=== PATIENT | female | born 1970 | race Caucasian/White ===

== ENCOUNTER 2019-05-25 21:09 | Emergency (ER) | payer OTHER ==
--- OUTSIDE RECORDS SUMMARY | 2019-05-25 21:12 | XMS REPORT ---
:1970 [facility] [address] [place] [address] Care Team Providers Name Role Phone SAMIRA AMARO Unavailable Unavailable SKYLA HERNANDEZ Unavailable Unavailable Problems This patient has no known problems. Allergies, Adverse Reactions, Alerts This patient has no known allergies or adverse reactions. Medications This patient has no known medications. Results Test Description Test Time Test Comments Text Results Atomic Results Result Comments MM, DIGITAL, 2019-05-21 Diagnostic workup per #[id number] - MAMMO, SCREENING, 10:31:00 radiologist?->Yes MM, DIGITAL, MAMMO, WITH ALYX, Reason for SCREENING, WITH ALYX, BILATERAL Exam:->z12.31 BILATERAL INCLUDING INCLUDING CAD CADBILATERAL DIGITAL SCREENING MAMMOGRAM 3D/2D WITH CAD: 05/21/2019Comparison is made to exam dated: 01/31/2017 mammogram. There are scattered fibroglandular elements in both breasts that could obscure a lesion on mammography. Tomosynthesis 3D imaging of the breast was also performed. Current study was also evaluated with a Computer Aided Detection (CAD) system. Benign appearing calcifications are present in both breasts. Examination indicates an intramammary lymph node in the right breast. No significant masses, calcifications, or other findings are seen in either breast. IMPRESSION: BENIGNThere is no mammographic evidence of malignancy. A 1 year screening mammogram is recommended. Stanislav Aly M.D. pth/penrad:05/21/2019 10:31:45 copy to: SIERRA BRICENO MD Normal Exam Mammogram BI-RADS: 2 Benign -GLUCOSE METER 2018-12-30 12:07:00 Test Item Value Reference Range Comments POC-GLUCOSE METER (BEAKER) (test 119 mg/dL 70-110 TESTED AT [facility] [address] [facility] mdat=1877) [facility] [address] POCT-GLUCOSE [id number] 08:38:00 Test Item Value Reference Range Comments POC-GLUCOSE METER (BEAKER) 121 mg/dL 70-110 TESTED AT [address] (test ognp=8068) [facility] [address] [id number] 06:54:00 Test Item Value Reference Range Comments PHOSPHORUS (BEAKER) (test vaqk=086) 2.8 mg/dL 2.3-4.7 [id number] 06:54:00 Test Item Value Reference Range Comments MAGNESIUM (BEAKER) (test ccad=160) 1.9 mg/dL 1.6-2.6 BASIC METABOLIC [id number] 06:54:00 Test Item Value Reference Range Comments SODIUM (BEAKER) (test 138 meq/L 136-145 rcoi=424) POTASSIUM (BEAKER) (test 4.0 meq/L 3.5-5.1 kmew=949) CHLORIDE (BEAKER) (test 111 meq/L 98-107 icos=978) CO2 (BEAKER) (test 20 meq/L 22-29 wqre=323) BLOOD UREA NITROGEN 7 mg/dL 7-21 (BEAKER) (test ezzt=267) CREATININE (BEAKER) (test 0.67 mg/dL 0.57-1.25 xzhz=128) GLUCOSE RANDOM (BEAKER) 121 mg/dL 70-105 (test bcfq=123) CALCIUM (BEAKER) (test 8.2 mg/dL 8.4-10.2 tswz=634) EGFR (BEAKER) (test 95 mL/min/1.73 sq m ESTIMATED GFR IS NOT adsw=7898) ACCURATE CREATININE CLEARANCE IN PREDICTING GLOMERULAR FILTRATION RATE. ESTIMATED GFR IS NOT APPLICABLE FOR DIALYSIS PATIENTS. CBC W/PLT COUNT & AUTO [id number] 06:09:00 Test Item Value Reference Range Comments WHITE BLOOD CELL COUNT (BEAKER) (test fman=139) 7.5 K/ L 3.5-10.5 RED BLOOD CELL COUNT (BEAKER) (test bwoi=528) 4.86 M/ L 3.93-5.22 HEMOGLOBIN (BEAKER) (test aanp=390) 12.1 GM/DL 11.2-15.7 HEMATOCRIT (BEAKER) (test rool=267) 39.9 % 34.1-44.9 MEAN CORPUSCULAR VOLUME (BEAKER) (test bexw=998) 82.1 fL 79.4-94.8 MEAN CORPUSCULAR HEMOGLOBIN (BEAKER) (test 24.9 pg 25.6-32.2 hlig=240) MEAN CORPUSCULAR HEMOGLOBIN CONC (BEAKER) (test 30.3 GM/DL 32.2-35.5 bwra=399) RED CELL DISTRIBUTION WIDTH (BEAKER) (test 18.3 % 11.7-14.4 dxto=184) PLATELET COUNT (BEAKER) (test vaat=343) 212 K/CU MM 150-450 MEAN PLATELET VOLUME (BEAKER) (test mgvr=425) 9.7 fL 9.4-12.3 NUCLEATED RED BLOOD CELLS (BEAKER) (test 0 /100 WBC 0-0 lspf=281) NEUTROPHILS RELATIVE PERCENT (BEAKER) (test 75 % wkaz=196) LYMPHOCYTES RELATIVE PERCENT (BEAKER) (test 16 % nhor=856) MONOCYTES RELATIVE PERCENT (BEAKER) (test 9 % qcjd=979) EOSINOPHILS RELATIVE PERCENT (BEAKER) (test 0 % zhng=878) BASOPHILS RELATIVE PERCENT (BEAKER) (test 0 % lwdr=766) NEUTROPHILS ABSOLUTE COUNT (BEAKER) (test 5.60 K/ L 1.56-6.13 ckgx=108) LYMPHOCYTES ABSOLUTE COUNT (BEAKER) (test 1.20 K/ L 1.18-3.74 noiv=132) MONOCYTES ABSOLUTE COUNT (BEAKER) (test 0.67 K/ L 0.24-0.36 hjjt=016) EOSINOPHILS ABSOLUTE COUNT (BEAKER) (test 0.00 K/ L 0.04-0.36 twsv=483) BASOPHILS ABSOLUTE COUNT (BEAKER) (test 0.01 K/ L 0.01-0.08 effk=823) IMMATURE GRANULOCYTES-RELATIVE PERCENT (BEAKER) 0 % 0-1 (test vgim=9224) POCT-GLUCOSE [id number] 21:17:00 Test Item Value Reference Range Comments POC-GLUCOSE METER (BEAKER) 182 mg/dL 70-110 TESTED AT [address] (test uerp=3275) [facility] [address] POCT-GLUCOSE [id number] 13:42:00 Test Item Value Reference Range Comments POC-GLUCOSE METER (BEAKER) 163 mg/dL 70-110 TESTED AT [address] (test khec=3255) [facility] [address] POCT-GLUCOSE [id number] 07:19:00 Test Item Value Reference Range Comments POC-GLUCOSE METER (BEAKER) 126 mg/dL 70-110 TESTED AT [address] (test qxbc=0046) [facility] [address] TISSUE [id number] 13:15:00Surgical Pathology Report Case: [id number] Authorizing Provider: Skyla Hernandez Collected: 11/27/2018 0819 Ordering Location: [facility] Endoscopy Received: 11/27/2018 1324 Services Pathologist: Daisha Cheatham MD Specimens: A) - Biopsy, Gastric, random B) -Biopsy, Gastroesophageal Junction A. STOMACH, RANDOM, BIOPSY: - CHRONIC INACTIVE GASTRITIS - NEGATIVE FOR H. PYLORI BY WARTHIN-STARRY STAINB. GASTROESOPHAGEAL JUNCTION, BIOPSY: - SQUAMOCOLUMNAR MUCOSA, NEGATIVE FOR DEFINITIVE INTESTINAL METAPLASIA (SEE COMMENT) - SQUAMOUS EPITHELIUM WITH REACTIVE CHANGES, SUGGESTIVE OF REFLUX ESOPHAGITIS - GASTRIC TYPE MUCOSA WITH REACTIVE EPITHELIAL CHANGES AND CHRONIC INFLAMMATION SigningPathologist Direct Phone Line: at1:15 PMB. Sections show squamocolumnar mucosa with marked reactive changes and prominent chronic inflammation in the gastric type mucosa. No definitive intestinal metaplasia is seen histologically. Multiple deeper levels were examined. Additionally, a special stain for PAS/Alcian Blue is also negativefor intestinal metaplasia. Clinical/endoscopic correlation is recommended to determine the adequacy of the sampling. 17923 x 2, 27099, 52064Meduvm obesity, Templeton's esophagus with dysplasiaA. Biopsy, gastric, random; B. Biopsy, gastroesophageal junctionThe case is received in two parts both labeled with the patient's name, Rose Glasgow, date of 1970 and accession number [id number] which corresponds to accompanying requisition page labeled with the same name and accession number. A. Received in formalin labeled "biopsy, gastric" are three burdick-pink irregular pieces of tissue ranging from 0.3 x 0.2 x 0.2 cm to 0.5 x 0.3 x 0.3 cm. The specimen submitted in toto following filtration in cassette A1.B. Received in formalin labeled "biopsy, gastroesophageal junction" are four burdick-pink irregular pieces of tissue ranging from 0.2 x 0.1 x 0.1 cm to 0.4 x 0.3 x 0.2 cm. The specimen submitted in toto following filtration in cassette B1. RP/pl Performed.The interpretation of this case included the use of immunohistochemistry or special stains.warthin-starry, PAS/alcian blueControl Slides Examined: In-house known positive controls were evaluated along with the test tissue. These control slides run alongside of the patients sample show appropriate staining. Internal positive and negative controls when available are evaluated Immunohistochemistry technical testing was performed at [facility]ology [facility] where it was developed and its performance characteristics were determined. It has not been cleared or approved by the U.S. Food and Drug Administration. The FDA has determined that such clearance or approval is not necessary. The test is used for clinical purposes. It should not be regarded as investigational or for research. This laboratory is certified under the Clinical Laboratory Improvement Amendments of 1988 (CLIA-88) as qualified to perform highcomplexity clinical laboratory testing.
[2019-05-25] MEDS ORDERED: LIDOCAINE 4% PATCH ONE (22:10)
[2019-05-25] MEDS ORDERED: NA CHLORIDE 0.9% 500 ML ONE (22:24)
[2019-05-25 22:35] LABS: Absolute Lymphocytes (CBC) 2.1 K/uL (0.7-4.9); Basophils % 0.8 % (0-1.3); Hematocrit 40.5 % (36.0-45.0); MPV 8.6 fL (7.6-11.3); RBC Red Blood Cell Count 4.62 M/uL (3.86-4.86)
[2019-05-25 22:46] LABS: ALT/SGPT 20 U/L (12-78); AST/SGOT 12 U/L (15-37); Albumin 3.3 g/dL (3.4-5.0); Alkaline Phosphatase 97 U/L (45-117); BUN Blood Urea Nitrogen 12 mg/dL (7-18); Bicarbonate 27 mmol/L (21-32); Bilirubin Total 0.3 mg/dL (0.2-1.0); Glucose Level 99 mg/dL (74-106); Potassium 3.6 mmol/L (3.5-5.1); Protein, Total 6.6 g/dL (6.4-8.2); Sodium Level 144 mmol/L (136-145)
--- NOTE | 2019-05-26 00:26 | EDPHYS ---
Physician Documentation [facility] Name: Rose Glasgow Age: 48 yrs Sex: Female : 1970 Arrival Date: 05/25/2019 Time: 21:14 Bed 25 Private MD: ED Physician Hayden Dumas HPI: 05/25 21:59 This 48 yrs old Female presents to ER via Ambulatory with complaints of snw Shoulder Pain. 21:59 The patient or guardian complains of pain, that is acute. left subscapular area. snw Context: The problem was sustained at an unknown site, resulted from an unknown reason, The patient reports no decreased range of motion. The patient reports no obvious deformity. Onset: The symptoms/episode began/occurred gradually, 3 month(s) ago, and became persistent. Associated signs and symptoms: The patient has no apparent associated signs or symptoms. Severity of symptoms: At their worst the symptoms were moderate, severe. It is unknown whether or not the patient has had similar symptoms in the past. The patient has been recently seen by a physician: the patient's primary care provider, Dr. Gray with similar presenting complaints, X-rays were performed. 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 - Social history:: Smoking status: Patient/guardian denies using tobacco, never smoked, Patient uses. - Ebola Screening: : Patient negative for fever greater than or equal to 101.5 degrees Fahrenheit, and additional compatible Ebola Virus Disease symptoms. ROS: 21:57 Eyes: Negative for injury, pain, redness, and discharge, ENT: Negative for injury, snw pain, and discharge, Neck: Negative for injury, pain, and swelling, Cardiovascular: Negative for chest pain, palpitations, and edema, Respiratory: Negative for shortness of breath, cough, wheezing, and pleuritic chest pain, Abdomen/GI: Negative for abdominal pain, nausea, vomiting, diarrhea, and constipation, : Negative for injury, bleeding, discharge, and swelling, MS/Extremity: Negative for injury and deformity, Skin: Negative for injury, rash, and discoloration, Neuro: Negative for headache, weakness, numbness, tingling, and seizure. 21:57 Constitutional: Positive for malaise, anxiety. 21:57 Back: Positive for superficial pain to small area of left upper back. 21:57 Psych: Positive for anxiety. Exam: 21:50 Head/Face: Normocephalic, atraumatic. Eyes: Pupils equal round and reactive to light, snw extra-ocular motions intact. Lids and lashes normal. Conjunctiva and sclera are non-icteric and not injected. Cornea within normal limits. Periorbital areas with no swelling, redness, or edema. ENT: Nares patent. No nasal discharge, no septal abnormalities noted. Tympanic membranes are normal and external auditory canals are clear. Oropharynx with no redness, swelling, or masses, exudates, or evidence of obstruction, uvula midline. Mucous membranes moist. Neck: Trachea midline, no thyromegaly or masses palpated, and no cervical lymphadenopathy. Supple, full range of motion without nuchal rigidity, or vertebral point tenderness. No Meningismus. Chest/axilla: Normal chest wall appearance and motion. Nontender with no deformity. No lesions are appreciated. Cardiovascular: Regular rate and rhythm with a normal S1 and S2. No gallops, murmurs, or rubs. Normal PMI, no JVD. No pulse deficits. Respiratory: Lungs have equal breath sounds bilaterally, clear to auscultation and percussion. No rales, rhonchi or wheezes noted. No increased work of breathing, no retractions or nasal flaring. Abdomen/GI: Soft, non-tender, with normal bowel sounds. No distension or tympany. No guarding or rebound. No evidence of tenderness throughout. Skin: Warm, dry with normal turgor. Normal color with no rashes, no lesions, and no evidence of cellulitis. MS/ Extremity: Pulses equal, no cyanosis. Neurovascular intact. Full, normal range of motion. Neuro: Awake and alert, GCS 15, oriented to person, place, time, and situation. Cranial nerves II-XII grossly intact. Motor strength 5/5 in all extremities. Sensory grossly intact. Cerebellar exam normal. Normal gait. 21:50 Constitutional: The patient appears alert, awake, anxious, uncomfortable. 21:50 Back: pain, that is moderate, of the left subscapular area, ROM is painful, as it presses on sore area distal to left scapula. skin with darker nevus centered within area of pain. 21:50 Psych: Behavior/mood is anxious, Affect is tearful. Oriented to person, place, time. Vital Signs: 21:31 BP 143 / 97; Pulse 62; Resp 18; Temp 98.3; Pulse Ox 96% on R/A; Pain 5/10; sr5 21:40 Weight 120.2 kg (R); Height 5 ft. 6 in. (167.64 cm); sr5 22:18 BP 123 / 81; Pulse 61; Resp 20; Pulse Ox 100% on R/A; sr5 22:57 BP 130 / 88; Pulse 70; Resp 16; Pulse Ox 99% on R/A; Pain 5/10; sr5 23:57 BP 123 / 77; Pulse 71; Resp 16; Pulse Ox 96% on R/A; sr5 05/26 00:25 BP 133 / 86; Pulse 64; Resp 18; Pulse Ox 97% on R/A; sr5 05/25 21:40 Body Mass Index 42.77 (120.20 kg, 167.64 cm) sr5 MDM: 05/25 21:30 Patient medically screened. snw 05/26 00:27 Data reviewed: vital signs, nurses notes. Data interpreted: Pulse oximetry: on room air snw is 96 %. Interpretation: acceptable. Counseling: I had a detailed discussion with the patient and/or guardian regarding: the historical points, exam findings, and any diagnostic results supporting the discharge/admit diagnosis, lab results, radiology results, the need for outpatient follow up, to return to the emergency department if symptoms worsen or persist or if there are any questions or concerns that arise at home. Special discussion: Based on the history and exam findings, there is no indication for further emergent testing or inpatient evaluation. I discussed with the patient/guardian the need to see the consumer safety officer for further evaluation of the symptoms. I discussed with the patient/guardian the need to see the primary care provider for further evaluation of the symptoms. 05/25 22:10 Order name: CMP; Complete Time: 22:47 sr5 05/25 22:10 Order name: CBC with Diff; Complete Time: 22:47 snw 05/25 21:43 Order name: CT Chest W/ Con: left subscapular pain snw 05/25 23:37 Order name: Misc. Order: please increase IVF rate to bolus for remainder of liter; snw Complete Time: 23:40 Administered Medications: 05/25 22:10 Drug: Lidoderm 5 % (700 mg/patch) 1 patches Route: Topical; Site: affected area; sr5 22:44 Follow up: Response: No change in condition sr5 22:27 Drug: NS 0.9% 1000 ml Route: IV; Rate: 75 ml/hr; Site: right antecubital; sr5 05/26 00:46 Follow up: IV Status: Completed infusion; IV Intake: 500ml sr5 Disposition: 01:19 Co-signature as Attending Physician, Hayden Dumas MD I agree with the assessment and kdr plan of care. Disposition: 05/26/19 00:25 Discharged to Home. Impression: Subscapular pain. - Condition is Stable. - Discharge Instructions: Back Pain, Adult, Mole Excision, Care After. - Prescriptions for Lidoderm 5 % Topical adhesive patch,medicated - apply 1 patch by TRANSDERMAL route once daily; 5 Transdermal Patch. - Medication Reconciliation Form, Thank You Letter, Antibiotic Education, Prescription Opioid Use form. - Follow up: Private Physician; When: 2 - 3 days; Reason: Recheck today's complaints, Continuance of care, Re-evaluation by your physician. Follow up: Emergency Department; When: As needed; Reason: Worsening of condition. Signatures: Dispatcher [employer] [facility] Hayden Dumas MD MD kdr Therrien, Shelly, K 8 SCHOOL PRINCIPAL-C K 8 SCHOOL PRINCIPAL-Csnw Resecker, Luis, RN RN sr5 Corrections: (The following items were deleted from the chart) 05/25 21:58 21:50 Back: pain, that is moderate, of the left subscapular area, ROM is painful, as it snw presses on sore area distal to left scapula. snw 22:11 22:11 BASIC METABOLIC PANEL+C.LAB.BRZ ordered. [facility] 05/26 00:46 00:25 05/26/2019 00:25 Discharged to Home. Impression: Subscapular pain. Condition is sr5 Stable. Forms are Medication Reconciliation Form, Thank You Letter, Antibiotic Education, Prescription Opioid Use. Follow up: Private Physician; When: 2 - 3 days; Reason: Recheck today's complaints, Continuance of care, Re-evaluation by your physician. Follow up: Emergency Department; When: As needed; Reason: Worsening of condition. snw
--- NOTE | 2019-05-26 00:26 | ER ---
Nurse's Notes [facility] Name: Rose Glasgow Age: 48 yrs Sex: Female : 1970 Arrival Date: 05/25/2019 Time: 21:14 Bed 25 Private MD: Diagnosis: Subscapular pain Presentation: 05/25 21:25 Presenting complaint: Patient states: pain to LEFT mid back/scapular area x 3 weeks, sr5 reports visible swelling. Back pain reported to have started in December following gastric bypass surgery. Patient has lost 100 pounds and thought pain would have been relieved by now. Reports recent xray showed only degenerative changes. Pt reports pain "feels superficial, it's painful to sit back in my seat or touch it". Pt history of RIGHT partial kidney nephrectomy for cancer. Transition of care: patient was not received from another setting of care. Onset of symptoms was April 25, 2019. Risk Assessment: Do you want to hurt yourself or someone else? Patient reports no desire to harm self or others. Initial Sepsis Screen: Does the patient meet any 2 criteria? No. Patient's initial sepsis screen is negative. Care prior to arrival: None. 21:25 Method Of Arrival: Ambulatory sr5 21:25 Acuity: JINNY 4 sr5 Triage Assessment: 21:31 General: Appears uncomfortable, Behavior is calm, cooperative. Pain: Complains of pain sr5 in left subscapular area and left mid back Pain currently is 5 out of 10 on a pain scale. Quality of pain is described as burning, stinging. EENT: No signs and/or symptoms were reported regarding the EENT system. Neuro: Level of Consciousness is awake, alert, obeys commands, Oriented to person, place, time, situation, Gait is steady, Speech is normal. Cardiovascular: Patient's skin is warm and dry. Respiratory: Respiratory effort is even, unlabored, Respiratory pattern is regular, symmetrical. GI: No signs and/or symptoms were reported involving the gastrointestinal system. : No signs and/or symptoms were reported regarding the genitourinary system. Derm: No signs and/or symptoms reported regarding the dermatologic system. Musculoskeletal: No signs and/or symptoms reported regarding the musculoskeletal system. 21:40 Pain:. 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 - Social history:: Smoking status: Patient/guardian denies using tobacco, never smoked, Patient uses. - Ebola Screening: : Patient negative for fever greater than or equal to 101.5 degrees Fahrenheit, and additional compatible Ebola Virus Disease symptoms. Screenin:11 Abuse screen: Denies threats or abuse. Nutritional screening: No deficits noted. sr5 Tuberculosis screening: No symptoms or risk factors identified. Fall Risk None identified. Assessment: 22:11 Reassessment: No changes from previously documented assessment. General:. sr5 22:57 Reassessment: No changes from previously documented assessment. sr5 05/26 00:25 Reassessment: No changes from previously documented assessment. Patient is alert, sr5 oriented x 3, equal unlabored respirations, skin warm/dry/pink. Vital Signs: 05/25 21:31 BP 143 / 97; Pulse 62; Resp 18; Temp 98.3; Pulse Ox 96% on R/A; Pain 5/10; sr5 21:40 Weight 120.2 kg (R); Height 5 ft. 6 in. (167.64 cm); sr5 22:18 BP 123 / 81; Pulse 61; Resp 20; Pulse Ox 100% on R/A; sr5 22:57 BP 130 / 88; Pulse 70; Resp 16; Pulse Ox 99% on R/A; Pain 5/10; sr5 23:57 BP 123 / 77; Pulse 71; Resp 16; Pulse Ox 96% on R/A; sr5 05/26 00:25 BP 133 / 86; Pulse 64; Resp 18; Pulse Ox 97% on R/A; sr5 05/25 21:40 Body Mass Index 42.77 (120.20 kg, 167.64 cm) sr5 ED Course: 05/25 21:14 Patient arrived in ED. cl3 21:16 Carmella Hi FNP-C [facility] snw 21:16 Hayden Dumas MD is Attending Physician. snw 21:25 Luis Carroll, RN is Primary Nurse. sr5 21:28 Triage completed. sr5 21:31 Arm band placed on right wrist. sr5 22:11 Patient has correct armband on for positive identification. Placed in gown. Bed in low sr5 position. Call light in reach. Side rails up X 1. Pulse ox on. NIBP on. 22:11 No provider procedures requiring assistance completed. Initial lab(s) drawn, by me, srGraham sent to lab. Inserted saline lock: 22 gauge in right antecubital area, using aseptic technique. Blood collected. 23:33 CT Chest W/ Con: left subscapular pain In Process Unspecified. EDMS 05/26 00:44 IV discontinued, intact, bleeding controlled, No redness/swelling at site. Pressure sr5 dressing applied. Administered Medications: 05/25 22:10 Drug: Lidoderm 5 % (700 mg/patch) 1 patches Route: Topical; Site: affected area; sr5 22:44 Follow up: Response: No change in condition sr5 22:27 Drug: NS 0.9% 1000 ml Route: IV; Rate: 75 ml/hr; Site: right antecubital; sr5 05/26 00:46 Follow up: IV Status: Completed infusion; IV Intake: 500ml sr5 Intake: 00:46 IV: 500ml; Total: 500ml. sr5 Outcome: 00:25 Discharge ordered by . snw 00:44 Discharged to home ambulatory. sr5 00:44 Condition: good 00:44 Discharge instructions given to patient, Instructed on discharge instructions, follow up and referral plans. medication usage, Demonstrated understanding of instructions, follow-up care, medications, Prescriptions given X 1. 00:46 Patient left the ED. sr5 Signatures: Dispatcher [employer] EDHI Carmella Hi, CRAYON SORTING MACHINE FEEDER-C CRAYON SORTING MACHINE FEEDER-Csnw Luis Carroll, RN RN Victor Manuel Ayala cl3
[2019-05-26 01:00] VITALS: TEMP 98.3
[2019-05-26 01:06] VITALS: BP 133/86; O2SAT 97
--- NOTE | 2019-05-27 11:05 | RAD REPORT ---
EXAM DESCRIPTION: CT - Thorax W/ Con - 05/26/2019 6:43 am CLINICAL HISTORY: PAIN TECHNIQUE: Contiguous axial images obtained through the chest following the uneventful administratio n of IV contrast. Coronal and sagittal reformatted images provided. This exam was performed according to our departmental dose-optimization program, which includes autom ated exposure control, adjustment of the mA and/or kV according to patient size and/or use of iterati ve reconstruction technique. COMPARISON: 05/09/2017 FINDINGS: Lungs: No focal consolidation. Airways are patent. Pleura: No effusion. No pneumothorax. Heart and pericardium: The heart is normal in size. No pericardial effusion. Mediastinum and giovanna: No pathologically enlarged lymph nodes. Lower neck and chest wall: Unremarkable Vessels: Unremarkable Upper abdomen: The liver is enlarged and diffusely low in density compatible with steatosis. Prior ch olecystectomy. Partially visualized gastric bypass. Bones: Multilevel spondylosis. No acute fracture. IMPRESSION: No acute abnormality. Electronically signed by: Shante Bernard MD 05/25/2019 11:41 PM FINANCIAL SERVICES OFFICER Due to temporary technical issues with the PACS/Fluency reporting system, reports are being signed by the in house radiologist as a courtesy to ensure prompt reporting. The interpreting radiologist is f ully responsible for the content of the report.
== END 2019-05-26 00:46 | disposition home or self-care (01) ==
LOC: ER 21:09
DX: M25.512 Pain in left shoulder (principal); Z88.2 Allergy status to sulfonamides
CPT/HCPCS: 96361; 85025; 36415; 80053; 71260; 96360; 99284; Q9967; J7040

== ENCOUNTER 2020-02-01 20:16 | Observation (INO) | payer OTHER ==
--- OUTSIDE RECORDS SUMMARY | 2020-02-01 20:19 | XMS REPORT | Continuity of Care Document ---
:1970 Author Organization [facility] t Address [address] [place] [address] Care Team Providers Name Role Phone Diane Briceno MD Primary Care Physician Katherine MORENO A Attending Clinician Tramaine Loredo MD Attending Clinician Khushboo SUÁREZ Attending Clinician Unavailable Ernestine STEINBERG Attending Clinician Jed SINHA Attending Clinician Unavailable TY HERNANDEZ Attending Clinician Unavailable Jed SINHA Admitting Clinician Unavailable TY HERNANDEZ Admitting Clinician Unavailable Payers Payer Name Policy Type Policy Number Effective Date Expiration Date S marcella [facility] - [facility]OPEN Center ACCESSxxxxxxxxxx xHMO/POS [place] xxxxxxxxx [facility] - MGD - Medica l CAREUNITED HMO Center POS SELECT CHOICExxxxxxxxxH MO/POS Problems Condition Condition Condition Status Onset Resolution Last Treating Co mments Source Name Details Category Date Date Treatment Clinician Date Morbid Morbid Disease Active [facility] obesity obesity 12-29 [facility] 00:[facility] 00 Center Gastroesop Gastroesop Disease Active [facility] hageal hageal 12-29 kes - reflux reflux 00:00: Medical disease disease 00 Center with with esophagiti esophagiti s s Allergies, Adverse Reactions, Alerts Allergy Allergy Status Severity Reaction(s) Onset Inactive Treating Comm ents Source Name Type Date Date Clinician Adhesive Drug Active Rash 2016-[address] [facility] Allergy 06-21 [facility] - 00:[facility]: Medical 00 Center Sulfa Propensi Active Other (See 2016-[address] (Sulfona ty to Comments) 06-09 [facility] d Medical Antibiot reaction 00 reaction, Lelo ter ics) s advised to avoid due to intracran ial HTN Family History Family Member Diagnosis Comments Start Date Stop Date Source Natural father Heart disease [facility] Natural father Heart failure [facility] Natural father Hyperlipidemia [facility] Natural father Hypertension [facility] Maternal grandmother Cancer [facility] Paternal grandmother Cancer [facility] Social History Social Habit Start Date Stop Date Quantity Comments Source History SDOH Alcohol [facility] Std Drinks [facility] History SDOH Alcohol [facility] Binge [facility] Sex Assigned At [facility] Alcohol Comment 2018-11-24 2018-11-24 rare [facility] - 00:00:00 00:00:00 [facility] History SDOH Alcohol 2018-08-31 2018-08-31 1 [facility] - Frequency 00:00:00 00:00:00 [facility] Smoking Status Start Date Stop Date Source Never smoker [facility] Medications Ordered Filled Start Stop Current Ordering Indication Dosage Frequency Signature Comments Components Source Medication Medication Date Date Medication? Clinician (SIG) Name Name dexlansopra Yes 60mg QD Take [address] [facility] [address] zole 60 mg 8-07 capsule [facility] - capsule 00:00: (60 mg Medical 00 total) by Center mouth daily. levothyroxi Yes 75ug Take [address] [address] ne 7-31 mcg by [facility] - (SYNTHROID, 16:53: mouth Medic al LEVOTHROID) 41 Every Center 50 MCG morning on tablet an empty stomach . acetaZOLAMI Yes 200mg Q.5D Take [address] [place] (DIAMOX) 7-31 mg by [facility] - 500 mg 12 16:53: mouth 2 Medic al hr capsule 41 (two) Center times daily . topiramate Yes 50mg QD Take [address] (TOPAMAX) 7-31 by mouth [facility] - 25 MG 16:53: daily . Medical tablet 41 Center ferrous Yes 325mg Take 325 [facility] sulfate 325 7-31 mg by [facility] - (65 FE) MG 16:53: mouth 3 Medi johan EC tablet 41 (three) Center times daily with meals. cholecalcif 0 Yes 5000U QD Take 5,[address] jeannie, 7-31 Units by [facility] - vitamin D3, 16:53: mouth Medic al 5,000 unit 41 daily. Center Tab topiramate Yes 150mg QD Take [address] (QUDEXY XR) 7-31 mg by [facility] - 150 mg CSpX 16:53: mouth Medic al 41 daily. Center budesonide- 0 Yes 2{puff} Inhale [address] [address] formoterol 7-02 puffs by [facility] - (SYMBICORT) 10:41: mouth via M edical 160-4.5 11 inhaler as Center mcg/actuati needed . on inhaler dilTIAZem Yes 30mg QD Take [address] (CARDIZEM) 7-02 by mouth [facility] - 30 MG 10:41: daily . Medical tablet 11 [place] cetirizine Yes 10mg Take [address] (ZYRTEC) 10 7-02 by mouth Luke s - MG tablet 10:41: as needed Med ical 11 . [place] spironolact Yes 25mg Take [address] [facility] one 7-02 by mouth 2 [facility] - (ALDACTONE) 10:41: (two) Medic al 25 MG 11 times Center tablet daily as needed . topiramate Yes 150mg QD Take [address] (QUDEXY XR) 7-02 mg by [facility] - 150 mg CSpX 10:41: mouth Medic al 11 nightly Center Qudexy . DULoxetine 0 Yes 30mg QD Take [address] (CYMBALTA) 4-08 by mouth [facility] - 30 MG 12:28: daily. Medical capsule 16 Center albuterol 0 Yes 1{puff} Inhale [address] HFA 4-08 puff by [facility] - (VENTOLIN 12:28: mouth via Med ical HFA) 90 16 inhaler Center mcg/actuati every 6 on inhaler (six) hours as needed for Wheezing. Procedures Procedure Date / Time Performed Performing Clinician Sourdiane e MM DIGITAL MAMMO 2019-05-21 10:26:00 Ariana Loredo [facility] - S[facility] WITH [facility] BILATERAL Plan of Care Planned Activity Planned Date Details Comments Source Future Scheduled 2020-01-25 INFLUENZA VACCINE BRITNI Elena [facility] - Test 00:00:00 (#1) [code = [facility] Center INFLUENZA VACCINE (#1)] Future Scheduled 1991 Screening for BRITNI Elena Shay es - Test 00:00:00 malignant neoplasm Medical C enter of cervix (procedure) [code = 139602799] Encounters Start End Encounter Admission Attending Care Care Encounter Source Date/Time Date/Time Type Type Clinicians Facility Department ID 2019-10-27 2019-10-27 Office IRMA Murphy [id number] 13:51:40 15:24:56 Visit Barbara A AMBULATOR [id number] Y [id number] [id number] 2019-01-18 2019-01-18 Office IRMA Cuello [id number] 09:26:08 13:14:40 Visit Verónica AMBULATOR 350.1.13.21 Y [id number] [id number] 2019-01-18 2019-01-18 Office IRMA Sinha [id number] 07:49:07 11:47:45 Visit Sb AMBULATOR 350.1.13.21 Y 0.2.7.2.686 [id number] 2018-12-23 2018-12-23 Office IRMA Sinha [id number] 13:54:21 15:58:00 Visit Sb AMBULATOR 350.1.13.21 Y 0.2.7.2.686 [id number] Results Test Description Test Time Test Comments Results Result [facility] e Comments MM, DIGITAL, 2019-04-26 Diagnostic MRN#: MAMMO, SCREENING, 7 workup per [id number] - WITH ALYX, 10:31:00 radiologist?->Y MM, DIGITAL, MAMMO, BILATERAL es Reason for SCREENING, WITH INCLUDING CAD Exam:->z12.31 ALYX, BILATERAL INCLUDING CADBILATERAL DIGITAL SCREENING MAMMOGRAM 3D/2D WITH CAD: 05/21/2019Compariso n is made to exam dated: 01/31/2017 mammogram. [...] 1 year screening mammogram is recommended. Stanislav Leija M.D. pth/penrad:05/21/20 10:31:45 copy to: SIERRA BRICENO MD Normal Exam Mammogram BI-RADS: 2 Benign digital mammo 2 Interface, External [facility] screen with alyx 7 Ris In - 05/21/2019 - Medical bilateral 10:31:00 [facility] [id number] - MM, DIGITAL, MAMMO, SCREENING, WITH ALYX, BILATERAL INCLUDING CADBILATERAL DIGITAL SCREENING MAMMOGRAM 3D/2D WITH CAD: 05/21/2019Compariso n is made to exam dated: 01/31/2017 mammogram. [...] 1 year screening mammogram is recommended. Stanislav Leija M.D. pth/penrad:05/21/20 10:31:45 copy to: SIERRA BRICENO MD Normal Exam Mammogram BI-RADS: 2 Benign -GLUCOSE METER 2018-12-30 12:07:00 Test Item Value Reference Range Interpretation Comme nts POC-GLUCOSE METER (BEAKER) (test 119 mg/dL 70-110 H TESTED AT [facility] [address] code = 1538) [facility] 7703 0 POCT-GLUCOSE [id number] 08:38:00 Test Item Value Reference Range Interpretation Comments POC-GLUCOSE METER 121 mg/dL 70-110 H TESTED AT [facility] [address] (BEAKER) (test code = BERTNE R [facility] 1538) [address] [id number] 06:54:00 Test Item Value Reference Range Interpretation Comments PHOSPHORUS (BEAKER) (test code = 2.8 mg/dL 2.3-4.7 604) [id number] 06:54:00 Test Item Value Reference Range Interpretation Comments MAGNESIUM (BEAKER) (test code = 1.9 mg/dL 1.6-2.6 627) BASIC METABOLIC [id number] 06:54:00 Test Item Value Reference Range Interpretation Comments SODIUM (BEAKER) 138 meq/L 136-145 (test code = 381) POTASSIUM (BEAKER) 4.0 meq/L 3.5-5.1 (test code = 379) CHLORIDE (BEAKER) 111 meq/L 98-107 H (test code = 382) CO2 (BEAKER) (test 20 meq/L 22-29 L code = 355) BLOOD UREA NITROGEN 7 mg/dL 7-21 (BEAKER) (test code = 354) CREATININE (BEAKER) 0.67 mg/dL 0.57-1.25 (test code = 358) GLUCOSE RANDOM 121 mg/dL 70-105 H (BEAKER) (test code = 652) CALCIUM (BEAKER) 8.2 mg/dL 8.4-10.2 L (test code = 697) EGFR (BEAKER) (test 95 mL/min/1.73 ESTIMA DEJON GFR IS code = 1092) sq m NOT ACCURATE CREATININE CLEARANCE IN PREDICTING GLOMERULAR FILTRATION RATE . ESTIMATED GFR I S NOT APPLICABLE FOR DIALYSIS PATIEN TS. CBC W/PLT COUNT & AUTO [id number] 06:09:00 Test Item Value Reference Range Interpretation Comments WHITE BLOOD CELL COUNT (BEAKER) 7.5 K/ L 3.5-10.5 (test code = 775) RED BLOOD CELL COUNT (BEAKER) 4.86 M/ L 3.93-5.22 (test code = 761) HEMOGLOBIN (BEAKER) (test code = 12.1 GM/DL 11.2-15.7 410) HEMATOCRIT (BEAKER) (test code = 39.9 % 34.1-44.9 411) MEAN CORPUSCULAR VOLUME (BEAKER) 82.1 fL 79.4-94.8 (test code = 753) MEAN CORPUSCULAR HEMOGLOBIN 24.9 pg 25.6-32.2 L (BEAKER) (test code = 751) MEAN CORPUSCULAR HEMOGLOBIN CONC 30.3 GM/DL 32.2-35.5 L (BEAKER) (test code = 752) RED CELL DISTRIBUTION WIDTH 18.3 % 11.7-14.4 H (BEAKER) (test code = 412) PLATELET COUNT (BEAKER) (test 212 K/CU MM 150-450 code = 756) MEAN PLATELET VOLUME (BEAKER) 9.7 fL 9.4-12.3 (test code = 754) NUCLEATED RED BLOOD CELLS 0 /100 WBC 0-0 (BEAKER) (test code = 413) NEUTROPHILS RELATIVE PERCENT 75 % (BEAKER) (test code = 429) LYMPHOCYTES RELATIVE PERCENT 16 % (BEAKER) (test code = 430) MONOCYTES RELATIVE PERCENT 9 % (BEAKER) (test code = 431) EOSINOPHILS RELATIVE PERCENT 0 % (BEAKER) (test code = 432) BASOPHILS RELATIVE PERCENT 0 % (BEAKER) (test code = 437) NEUTROPHILS ABSOLUTE COUNT 5.60 K/ L 1.56-6.13 (BEAKER) (test code = 670) LYMPHOCYTES ABSOLUTE COUNT 1.20 K/ L 1.18-3.74 (BEAKER) (test code = 414) MONOCYTES ABSOLUTE COUNT (BEAKER) 0.67 K/ L 0.24-0.36 H (test code = 415) EOSINOPHILS ABSOLUTE COUNT 0.00 K/ L 0.04-0.36 L (BEAKER) (test code = 416) BASOPHILS ABSOLUTE COUNT (BEAKER) 0.01 K/ L 0.01-0.08 (test code = 417) IMMATURE GRANULOCYTES-RELATIVE 0 % 0-1 PERCENT (BEAKER) (test code = 2801) POCT-GLUCOSE [id number] 21:17:00 Test Item Value Reference Range Interpretation Comments POC-GLUCOSE METER 182 mg/dL 70-110 H TESTED AT [facility] [address] ([facility] (test code = RONY Wilson [facility] 1538) [id number] POCT-GLUCOSE [id number] 13:42:00 Test Item Value Reference Range Interpretation Comments POC-GLUCOSE METER 163 mg/dL 70-110 H TESTED AT [place] [address] ([facility]) (test code = RONY Wilson [facility] 1538) [id number] POCT-GLUCOSE [id number] 07:19:00 Test Item Value Reference Range Interpretation Comments POC-GLUCOSE METER 126 mg/dL 70-110 H TESTED AT [place] [address] ([facility]) (test code = RONY Wilson [facility] 1538) [address] TISSUE [id number] 13:15:00Surgical Pathology Report Case: [id number] Authorizing Provider: Oh Hernandez Collected: 11/27/2018 0819 Ordering Location: [facility] Endoscopy Received: 11/27/2018 1324 Services Pathologist: Daisha Cheatham MD Specimens: A) - Biopsy, Gastric, random B) -Biopsy, Gastroesophageal Junction A. STOMACH, RANDOM, B IOPSY: - CHRONIC INACTIVE GASTRITIS - NEGATIVE FOR H. PYLORI BY WARTHIN- STARRY STAINB. GASTROESOPHAGEAL JUNCTION, BIOPSY: - SQUAMOCOLUMNAR MUCOSA, NEGATIVE FOR DEFINITIVE INTESTINAL METAPLASIA (SEE COMMENT) - SQUAMOUS EPITHELIUM WITH REACTIVE CHANGES, SUGGESTIVE OF REFLUX ESOPHAGITIS - GASTRIC TYPE MUCOSA WITH REACTIVE EPITHELIAL CHANGES AND CHRONIC INFLAMMATION SigningPathologist Direct Phone Line: [phone] signed by Daisha Cheatham MD on 12/02/2018 at1:15 PMB. Sections show squamocolumnar mucosa with marked reactive changes and prominent chronic inflammation in the gastric type mucosa. No definitive intestinal metaplasia is seen histologically. Multiple deeper levels were examined. Additionally, a special stain for PAS/Alcian Blue is also negativefor intestinal metaplasia. Clinical/endoscopic correlation is recommended to determine the adequacy of the sampling. 12562 x 2, 22542, 40368Dmrsmy obesity, Templeton's esophagus with dysplasiaA. Biopsy, gastric, [...] included the use of immunohistochemistry or special stains.warthin- starry, PAS/alcian blueControl Slides Examined: In-house known positive controls were evaluated along with the test tissue. These control slides run alongside of the patients sample show appropriate staining. Internal positive and negative controls when available are evaluated Immunohistochemistry technical testing was performed at [facility], Pathology Laboratory where it was developed and [...] of 1988 (CLIA-88) as qualified to perform high complexity clinical laboratory testing.
--- OUTSIDE RECORDS SUMMARY | 2020-02-01 20:19 | XMS REPORT | Clinical Summary ---
:1970 Author Organization [facility] Address [address] [place] [address] Care Team Providers Name Role Phone Zuleyka Briceno MD Primary Care Provider Allergies Active Allergy Reactions Severity Noted Date Comments Adhesive Rash Low 04/21/2017 Sulfa (Sulfonamide Other (See Comments) High 04/09/2017 N o documented reaction, Antibiotics) advised to avoi d due to intracranial HT N Medications Medication Sig Dispensed Refills Start Date End Date Status budesonide-formoterol Inhale 2 puffs 0 Active (SYMBICORT) 160-4.5 by mouth via mcg/actuation inhaler inhaler as needed . DULoxetine (CYMBALTA) 30 Take 30 mg by 0 Active MG capsule mouth daily. levothyroxine Take 75 mcg by 0 A ctive (SYNTHROID, LEVOTHROID) mouth Every 50 MCG tablet morning on an empty stomach . acetaZOLAMIDE (DIAMOX) Take 200 mg by 0 Active 500 mg 12 hr capsule mouth 2 (two) times daily . albuterol HFA (VENTOLIN Inhale 1 puff 0 Active HFA) 90 mcg/actuation by mouth via inhaler inhaler every 6 (six) hours as needed for Wheezing. dilTIAZem (CARDIZEM) 30 Take 30 mg by 0 Active MG tablet mouth daily . cetirizine (ZYRTEC) 10 Take 10 mg by 0 Active MG tablet mouth as needed . spironolactone Take 25 mg by 0 A ctive (ALDACTONE) 25 MG tablet mouth 2 (two) times daily as needed . topiramate (QUDEXY XR) Take 150 mg by 0 Active 150 mg CSpX mouth nightly Qudexy . topiramate (TOPAMAX) 25 Take 50 mg by 0 Active MG tablet mouth daily . ferrous sulfate 325 (65 Take 325 mg by 0 Active FE) MG EC tablet mouth 3 (three) times daily with meals. cholecalciferol, vitamin Take 5,000 0 Active D3, 5,000 unit Tab Units by mouth daily. topiramate (QUDEXY XR) Take 150 mg by 0 Active 150 mg CSpX mouth daily. dexlansoprazole 60 mg Take 1 capsule 30 capsule 0 12/30/2018 Active capsule (60 mg total) by mouth daily. Active Problems Problem Noted Date Morbid obesity 12/29/2018 Gastroesophageal reflux disease with esophagitis 12/29 Encounters Date Type Specialty Care Team Description 05/21/2019 Hospital Encounter Gertrude, Visit for screening Ariana Redd mammogram 03/27/2019 Outside Orders Central Scheduling Gertrude Visit f or screening Ariana Redd mammogram ( Primary MD Dx) after 01/31/2019 Family History Medical History Relation Name Comments Heart disease Father Heart failure Father Hyperlipidemia Father Hypertension Father Cancer Maternal Grandmother Cancer Paternal Grandmother Relation Name Status Comments Father Maternal Grandmother Paternal Grandmother Social History Tobacco Use Types Packs/Day Years Used Date Never Smoker Smokeless Tobacco: Never Used Alcohol Use Drinks/Week oz/Week Comments No rare Alcohol Habits Answer Date Recorded How often do you have a drink containing alcohol? Never 08/31/2018 How many drinks containing alcohol do you have on a typical Not asked day when you are drinking? How often do you have six or more drinks on one occasion? No t asked Sex Assigned at Date Recorded Not on file Job Start Date Occupation Industry Not on file Not on file Not on file Travel History Travel Start Travel End No recent travel history available. Last Filed Vital Signs Not on file Plan of Treatment Health Maintenance Due Date Last Done Comments CERVICAL CANCER SCREENING PAP ONLY (Age 21-65) 1991 INFLUENZA VACCINE (#1) 2020 Implants Implanted Type Area Minister Device Shelf Model / Identifier Expiration Serial / Date Lot Seamguard Biomateral Staple Line Reinforcement Green/Blue N/A: GORE 01/23/2021 [id number] / Implanted: Qty: 2 on 12/29/2018 by Sb Sinha MD [facility] / [id number] Procedures Procedure Name Priority Date/Time Associated Diagnosis Comme nts MM DIGITAL MAMMO Routine 05/21/2019 10:26 AM Resu lts for this SCREEN WITH ALYX VERIFYING MACHINE OPERATOR procedure a re in BILATERAL the results section. after 01/31/2019 Results MM digital mammo screen with alyx bilateral (05/21/2019 10:26 AM VERIFYING MACHINE OPERATOR) Specimen Narrative Performed At [facility] #[id number] - MM, DIGITAL, MAMMO, SCREENIN G, WITH ALYX, BILATERAL INCLUDING CAD BILATERAL DIGITAL SCREENING MAMMOGRAM 3D /2D WITH CAD: 05/21/2019 Comparison is made to exam dated:01/31 mammogram. There are scattered fibroglandular eleme nts in both breasts that could obscure a lesion on mammography. Tomosynthesis 3D imaging of the breast w as also performed. Current study was also evaluated with a Computer Aided Detection (CAD) system. Benign appearing calcifications are pres ent in both breasts. Examination indicates an intramammary lymph node in th e right breast. No significant masses, calcifications, o r other findings are seen in either breast. IMPRESSION: BENIGN There is no mammographic evidence of mal ignancy. A 1 year screening mammogram is recommended. Stanislav Aly M.D. pth/penrad:05/21/2019 10:31:45 copy to: SIERRA BRICENO MD Normal Exam Mammogram BI-RADS: 2 Benign Procedure Note Interface, External Ris In - 05/21/2019 11:15 AM [facility] [place] #[id number] - MM, DIGITAL, MAMMO, SCREENIN G, WITH ALYX, BILATERAL INCLUDING CAD BILATERAL DIGITAL SCREENING MAMMOGRAM 3D /2D WITH CAD: 05/21/2019 Comparison is made to exam dated: 017 mammogram. There are scattered fibroglandular eleme nts in both breasts that could obscure a lesion on mammography. Tomosynthesis 3D imaging of the breast w as also performed. Current study was also evaluated with a Computer Aided Detection (CAD) system. Benign appearing calcifications are pres ent in both breasts. Examination indicates an intramammary ly mph node in the right breast. No significant masses, calcifications, o r other findings are seen in either breast. IMPRESSION: BENIGN There is no mammographic evidence of mal ignancy. A 1 year screening mammogram is recommended. Stanislav Aly M.D. pth/penrad:05/21/2019 10:31:45 copy to: SIERRA BRICENO MD Normal Exam Mammogram BI-RADS: 2 Benign Performing Organization Address City/State/Zipcode Phone Number GE RIS after 01/31/2019 Insurance Payer Benefit Plan / Group Subscriber ID Type Phone A ddress [employer] - MGD CARE CIGNA HMO/POS/OPEN xxxxxxxxxxx HMO/POS ACCESS [employer] - MGD UNITED HMO POS SELECT xxxxxxxxx HMO/POS CARE CHOICE Advance Directives For more information, please contact:[address] [phone] Code Status Date Activated Date Inactivated Comments Full Code 12/29/2018 6:29 AM 12/29/2018 6:22 PM This code status was determined by: Patient
--- NOTE | 2020-02-01 21:26 | RAD REPORT ---
EXAM DESCRIPTION: RAD - Chest Single View - 02/01/2020 9:10 pm CLINICAL HISTORY: CHEST PAIN COMPARISON: Two view chest April 2017 TECHNIQUE: AP portable chest image was obtained 02/01/2020 9:10 pm . FINDINGS: Lungs are clear. Heart and vasculature are normal. No measurable pleural effusion and no p neumothorax. No acute bony abnormality seen. No acute aortic findings suspected. IMPRESSION: No acute cardiopulmonary process. No significant change from comparison.
[2020-02-01 21:30] LABS: ALT/SGPT 144 U/L (12-78); Albumin 3.5 g/dL (3.4-5.0); Alkaline Phosphatase 155 U/L (45-117); BUN Blood Urea Nitrogen 22 mg/dL (7-18); Bicarbonate 24 mmol/L (21-32); Bilirubin Direct 0.1 mg/dL (0-0.2); Bilirubin Total 0.3 mg/dL (0.2-1.0); Glucose Level 72 mg/dL (74-106); NT PRO-BNP 65 pg/mL (<125); Potassium 3.5 mmol/L (3.5-5.1); Protein, Total 7.3 g/dL (6.4-8.2); Sodium Level 139 mmol/L (136-145); Troponin (Emerg Dept Use Only) < 0.02 ng/mL (0.0-0.045)
[2020-02-01 21:32] LABS: AST/SGOT 446 U/L (15-37)
[2020-02-01 21:34] LABS: Absolute Lymphocytes (CBC) 2.4 K/uL (0.7-4.9); Basophils % 0.8 % (0-1.3); Hematocrit 43.4 % (36.0-45.0); Lymphocytes % 39.8 % (15.3-44.8); MPV 8.4 fL (7.6-11.3); RBC Red Blood Cell Count 5.08 M/uL (3.86-4.86)
[2020-02-01] MEDS ORDERED: ASPIRIN 81 MG CHEWABLE TABLET ONE (21:47)
[2020-02-01] MEDS ORDERED: MORPHINE 2 MG/ML SYR ONE ×2 (21:48→22:30)
[2020-02-01] MEDS ORDERED: ONDANSETRON 4 MG/2 ML VIAL ONE (21:48)
[2020-02-01 21:57] LABS: Blood Morphology Comment NOT SEEN (NOT SEEN); Platelet Estimate ADEQ; White Blood Cell Scan OK (OK)
[2020-02-01 22:02] LABS: Urine Blood NEGATIVE (NEG); Urine Glucose NEGATIVE (NEG); Urine Protein NEGATIVE (NEG)
[2020-02-01] MEDS ORDERED: NA CHLORIDE 0.9% 50 ML IV ONE (22:57)
[2020-02-01] MEDS ORDERED: PROMETHAZINE INJ 25 MG/ML AMP ONE (22:57)
--- NOTE | 2020-02-01 23:58 | ER ---
Nurse's Notes [facility] Name: Rose Glasgow Age: 49 yrs Sex: Female : 1970 Arrival Date: 02/01/2020 Time: 20:18 Bed 13 Private MD: Diagnosis: Chest pain, unspecified Presentation: 01/31 20:33 Chief complaint: Patient states: chest pain and tightness that started 30 minutes ago. wh Pt states pain radiating to left shoulder and neck. Pt states last night was awaken by sharp chest pain that subsided. Coronavirus screen: Client denies travel out of the [place] in the last 14 days. At this time, the client does not indicate any symptoms associated with coronavirus-19. Ebola Screen: Patient negative for fever greater than or equal to 101.5 degrees Fahrenheit, and additional compatible Ebola Virus Disease symptoms Patient denies exposure to infectious person. Initial Sepsis Screen: Does the patient meet any 2 criteria? No. Patient's initial sepsis screen is negative. Does the patient have a suspected source of infection? No. Patient's initial sepsis screen is negative. Risk Assessment: Do you want to hurt yourself or someone else? Patient reports no desire to harm self or others. Onset of symptoms was February 01, 2020. 20:33 Method Of Arrival: Wheelchair 20:33 Acuity: JINNY 3 20:35 Activity prior to arrival: vomiting. ls4 Triage Assessment: 20:22 General: Appears in no apparent distress. uncomfortable, Behavior is calm, cooperative. ls4 Pain: Complains of pain in anterior aspect of left upper chest and mid-sternal area Pain radiates to left sternocleidomastoid Pain currently is 7 out of 10 on a pain scale. 20:22 Cardiovascular: Capillary refill < 3 seconds Clubbing of nail beds is absent Patient's ls4 skin is warm and dry. Respiratory: Airway is patent Respiratory effort is even, unlabored, Respiratory pattern is regular. 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 - Social history:: Smoking status: Patient/guardian denies using alcohol, street drugs. Screenin:36 Abuse screen: Denies threats or abuse. Denies injuries from another. Nutritional wh screening: No deficits noted. Tuberculosis screening: No symptoms or risk factors identified. Fall Risk None identified. Assessment: 20:33 General: Appears uncomfortable, well groomed, Behavior is cooperative. Pain: Complains ls4 of pain in neck and left sternocleidomastoid and chest and mid-sternal area Pain currently is 7 out of 10 on a pain scale. Pain began suddenly, 30 min ago. Pain: Pain radiates to neck and left sternocleidomastoid. Neuro: No deficits noted. Cardiovascular: Capillary refill < 3 seconds Patient's skin is warm and dry. Rhythm is regular. Respiratory: Reports pain with respiration Airway is patent Respiratory effort is even, unlabored, Respiratory pattern is regular. GI: Reports vomiting. 21:30 Reassessment: Patient and/or family updated on plan of care and expected duration. Pain ls4 level reassessed. Patient is alert, oriented x 3, equal unlabored respirations, skin warm/dry/pink. 22:26 Reassessment: Patient and/or family updated on plan of care and expected duration. Pain ls4 level reassessed. Patient is alert, oriented x 3, equal unlabored respirations, skin warm/dry/pink. Pain returned, morphine given, pt taken to ct scan. : No deficits noted. No signs and/or symptoms were reported regarding the genitourinary system. 23:00 Reassessment: Patient and/or family updated on plan of care and expected duration. Pain mt2 level reassessed. Patient is alert, oriented x 3, equal unlabored respirations, skin warm/dry/pink. Reassessment: PROVIDER NOTIFIED OF PT NAUSEA. NEW ORDER FOR PHENEGRAN. General: Appears uncomfortable, Behavior is restless. Pain: Complains of pain in anterior aspect of right lateral abdomen and abdomen diffusely Pain currently is 8 out of 10 on a pain scale. GI: Reports nausea. 23:20 Reassessment: PT CONT TO C/O OF CHEST PRESSURE. PROVIDER NOTIFIED. PER MD NO NEW mt2 ANALGESIC UNTIL CT RESULTS ARE READ. PT INFORMED. 02/01 00:25 Reassessment: Patient and/or family updated on plan of care and expected duration. Pain mt2 level reassessed. Patient is alert, oriented x 3, equal unlabored respirations, skin warm/dry/pink. General: Appears comfortable, Behavior is calm. Pain: Complains of pain in chest Pain currently is 4 out of 10 on a pain scale. Vital Signs: 01/31 20:33 BP 124 / 90; Pulse 78; Resp 18; Temp 98.3; Pulse Ox 100% ; Pain 7/10; wh 21:05 BP 119 / 77; Pulse 78; Resp 16; Temp 98.2(O); Pulse Ox 99% on R/A; Pain 7/10; ls4 22:25 BP 120 / 76; Pulse 75; Resp 16; Pulse Ox 99% on R/A; Pain 0/10; ls4 23:00 BP 129 / 78; Pulse 68; Resp 16; Pulse Ox 99% on R/A; Pain 8/10; mt2 23:51 BP 101 / 58; Pulse 69; Resp 14 S; Pulse Ox 98% on R/A; mw2 02/01 00:25 BP 97 / 63; Pulse 66; Resp 16; Pulse Ox 97% on R/A; Pain 4/10; mt2 ED Course: 01/31 20:18 Patient arrived in ED. cl3 20:25 Lucina Beckham, RN is Primary Nurse. ll2 20:34 Triage completed. wh 20:36 Patient has correct armband on for positive identification. Placed in gown. Bed in low wh position. Call light in reach. Side rails up X 1. ekg monitor tech on. Pulse ox on. NIBP on. 20:37 Arm band placed on right wrist. wh 20:49 Missed attempt(s): 20 gauge in right in left antecubital area. Bleeding controlled, ds4 band aid applied, catheter tip intact. 21:03 XRAY Chest (1 view) Sent. ls4 21:08 No provider procedures requiring assistance completed. Patient maintains SpO2 ls4 saturation greater than 95% on room air. 21:10 XRAY Chest (1 view) In Process Unspecified. EDMS 21:10 Aaron Calderon MD is Attending Physician. 7 21:33 Inserted saline lock: 20 gauge in right forearm, using aseptic technique. mt2 22:52 CT Chest For PE Angio In Process Unspecified. EDMS 22:52 CT Abd/Pelvis - IV Contrast Only In Process Unspecified. EDMS 23:57 Charan Gray MD is Hospitalizing Provider. [facility] 02/01 00:25 Patient admitted, IV remains in place. mt2 Administered Medications: 01/31 21:30 Drug: Zofran (Ondansetron) 4 mg Route: IVP; Site: right forearm; ls4 22:40 Follow up: Response: No adverse reaction; Nausea is decreased mt2 21:30 Drug: Aspirin Chewable Tablet 324 mg Route: PO; ls4 22:40 Follow up: Response: No adverse reaction mt2 21:40 Drug: morphine 2 mg Route: IVP; Site: right forearm; ls4 22:40 Follow up: Response: No adverse reaction; Pain is unchanged, physician notified mt2 22:20 Drug: morphine 2 mg Route: IVP; Site: right forearm; ls4 22:55 Follow up: Response: No adverse reaction; Pain is unchanged, physician notified mt2 22:54 Drug: Phenergan 12.5 mg Route: IVP; Site: right forearm; mt2 23:13 Follow up: Response: No adverse reaction; Nausea is decreased mt2 02/01 00:01 Drug: NS 0.9% 1000 ml Route: IV; Rate: 1 bolus; Site: right forearm; mt2 00:35 Follow up: Response: No adverse reaction; IV Status: Infusion continued upon admission mt2 00:02 Drug: fentaNYL (PF) 25 mcg Route: IVP; Site: right forearm; mt2 00:26 Follow up: Response: No adverse reaction; Pain is decreased mt2 00:15 Drug: GI Cocktail without - (Maalox Suspension 30 ml, Lidocaine Liquid 2 % 15 mt2 ml) Route: PO; 00:26 Follow up: Response: No adverse reaction; Pain is decreased mt2 Outcome: 01/31 23:57 Decision to Hospitalize by Provider. [facility] 02/01 00:25 Condition: stable ri2 Instructed on the need for admit. 00:35 Admitted to Med/surg accompanied by tech, room 205, Report called to hayde mt2 00:47 Patient left the ED. mt2 Signatures: Dispatcher [employer] EDMichael Roland 4 Danelle Champagne MyKena 2 Melissa Stafford, RN RN ls4 Victor Manuel Saavedra cl3 Lucina Beckham RN RN ll2 Aaron Calderon MD MD 7 Augusta Roach RN RN mt2
--- NOTE | 2020-02-01 23:58 | EDPHYS ---
Physician Documentation [facility] Name: Rose Glasgow Age: 49 yrs Sex: Female : 1970 Arrival Date: 02/01/2020 Time: 20:18 Bed 13 Private MD: ED Physician Aaron Calderon HPI: 01/31 21:26 This 49 yrs old Female presents to ER via Wheelchair with complaints of Chest mh7 Pain. 21:26 The patient or guardian reports chest pain that is located primarily in the anterior mh7 chest wall, left. Onset: last night. The pain radiates to the left shoulder, left neck. Associated signs and symptoms: Pertinent positives: nausea, vomiting, Pertinent negatives: abdominal pain, cough, diaphoresis, dizziness, headache, lower extremity pain, lower extremity swelling, lightheadedness, near syncope, palpitations, recent travel, shortness of breath, syncope. The chest pain is described as tightness. Duration: The patient or guardian reports multiple episodes, that are intermittent, that wax and wane, with no pattern. Modifying factors: The symptoms are alleviated by nothing. the symptoms are aggravated by nothing. Severity of pain: At its worst the pain was moderate today, in the emergency department the pain is unchanged. 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 - Social history:: Smoking status: Patient/guardian denies using alcohol, street drugs. ROS: 21:26 Constitutional: Negative for fever, chills, and weight loss, Eyes: Negative for injury, mh7 pain, redness, and discharge, ENT: Negative for injury, pain, and discharge, Respiratory: Negative for shortness of breath, cough, wheezing, and pleuritic chest pain, Back: Negative for injury and pain, : Negative for injury, bleeding, discharge, and swelling, MS/Extremity: Negative for injury and deformity, Skin: Negative for injury, rash, and discoloration, Neuro: Negative for headache, weakness, numbness, tingling, and seizure, Psych: Negative for depression, anxiety, suicide ideation, homicidal ideation, and hallucinations, Allergy/Immunology: Negative for hives, rash, and allergies, Endocrine: Negative for neck swelling, polydipsia, polyuria, polyphagia, and marked weight changes, Hematologic/Lymphatic: Negative for swollen nodes, abnormal bleeding, and unusual bruising. Exam: 21:26 Head/Face: Normocephalic, atraumatic. Neck: Trachea midline, no thyromegaly or masses mh7 palpated, and no cervical lymphadenopathy. Supple, full range of motion without nuchal rigidity, or vertebral point tenderness. No Meningismus. Chest/axilla: Normal chest wall appearance and motion. Nontender with no deformity. No lesions are appreciated. Cardiovascular: Regular rate and rhythm with a normal S1 and S2. No gallops, murmurs, or rubs. Normal PMI, no JVD. No pulse deficits. Respiratory: Lungs have equal breath sounds bilaterally, clear to auscultation and percussion. No rales, rhonchi or wheezes noted. No increased work of breathing, no retractions or nasal flaring. Abdomen/GI: Soft, non-tender, with normal bowel sounds. No distension or tympany. No guarding or rebound. No evidence of tenderness throughout. Back: No spinal tenderness. No costovertebral tenderness. Full range of motion. Skin: Warm, dry with normal turgor. Normal color with no rashes, no lesions, and no evidence of cellulitis. MS/ Extremity: Pulses equal, no cyanosis. Neurovascular intact. Full, normal range of motion. Neuro: Awake and alert, GCS 15, oriented to person, place, time, and situation. Cranial nerves II-XII grossly intact. Motor strength 5/5 in all extremities. Sensory grossly intact. Cerebellar exam normal. Normal gait. Psych: Awake, alert, with orientation to person, place and time. Behavior, mood, and affect are within normal limits. 21:26 Constitutional: The patient appears in no acute distress, alert, awake, uncomfortable. 21:45 ECG was reviewed by the Attending Physician. mh7 Vital Signs: 20:33 BP 124 / 90; Pulse 78; Resp 18; Temp 98.3; Pulse Ox 100% ; Pain 7/10; wh 21:05 BP 119 / 77; Pulse 78; Resp 16; Temp 98.2(O); Pulse Ox 99% on R/A; Pain 7/10; ls4 22:25 BP 120 / 76; Pulse 75; Resp 16; Pulse Ox 99% on R/A; Pain 0/10; ls4 23:00 BP 129 / 78; Pulse 68; Resp 16; Pulse Ox 99% on R/A; Pain 8/10; mt2 23:51 BP 101 / 58; Pulse 69; Resp 14 S; Pulse Ox 98% on R/A; mw2 02/01 00:25 BP 97 / 63; Pulse 66; Resp 16; Pulse Ox 97% on R/A; Pain 4/10; mt2 MDM: 01/31 21:24 Patient medically screened. [facility] 23:54 Differential diagnosis: abnormal EKG, acute myocardial infarction, acute pericarditis, [facility] anxiety, coronary artery disease chest wall pain, costochondritis, pancreatitis, pneumonia, pneumothorax, pulmonary embolus. HEART Score: History: Moderately Suspicious (1), ECG: Non specific repolarization disturbance / LBTB / PM (1), Age: > 45 and < 65 years (1), Risk Factors: 1 or 2 risk factors (1), [Hypertension] [+ Family HX] Troponin: < or = 1 x Normal Limit (0), Total Score = 4. Data reviewed: vital signs, nurses notes, old medical records, lab test result(s), cardiac enzymes, CBC, electrolytes, urinalysis, EKG, radiologic studies, CT scan, plain films. Data interpreted: Pulse oximetry: on room air is 98 %. Interpretation: normal. Counseling: I had a detailed discussion with the patient and/or guardian regarding: the historical points, exam findings, and any diagnostic results supporting the discharge/admit diagnosis, lab results, radiology results, the need for further work-up and treatment in the hospital. 02/01 04:03 Response to treatment: the patient's symptoms have mildly improved after treatment. [facility] 01/31 20:35 Order name: Basic Metabolic Panel; Complete Time: 21:35 kb 01/31 20:35 Order name: CBC with Diff; Complete Time: 22:18 kb 01/31 20:35 Order name: LFT's; Complete Time: 21:35 kb 01/31 20:35 Order name: Magnesium; Complete Time: 21:35 kb 01/31 20:35 Order name: NT PRO-BNP; Complete Time: 21:35 kb 01/31 20:35 Order name: PT-INR; Complete Time: 21:25 kb 01/31 20:35 Order name: Troponin (emerg Dept Use Only); Complete Time: 21:35 kb 01/31 21:39 Order name: Lipase; Complete Time: 22:18 [facility] 01/31 21:57 Order name: CBC Smear Scan; Complete Time: 22:18 [facility] 01/31 21:59 Order name: Urine Dipstick--Ancillary (enter results); Complete Time: 22:18 [facility] 01/31 21:59 Order name: Urine --Ancillary (enter results); Complete Time: 22:18 [facility] 02/01 00:08 Order name: Basic Metabolic Panel [facility] 02/01 00:08 Order name: Basic Metabolic Panel [facility] 02/01 00:08 Order name: CBC with Automated Diff [facility] 01/31 20:35 Order name: XRAY Chest (1 view); Complete Time: 21:32 kb 01/31 20:35 Order name: EKG; Complete Time: 20:36 kb 01/31 21:42 Order name: CT Chest For PE Angio [facility] 01/31 21:42 Order name: CT Abd/Pelvis - IV Contrast Only [facility] 02/01 00:08 Order name: CBC with Automated Diff [facility] 02/01 00:08 Order name: Troponin I [facility] 02/01 00:08 Order name: Troponin I; Complete Time: 06:31 [facility] 02/01 00:08 Order name: Troponin I; Complete Time: 06:31 [facility] 01/31 20:35 Order name: Cardiac monitoring; Complete Time: 20:48 kb 01/31 20:35 Order name: EKG - Nurse/Tech; Complete Time: 20:48 kb 01/31 20:35 Order name: Labs collected and sent; Complete Time: 20:48 kb 01/31 20:35 Order name: O2 Per Protocol; Complete Time: 20:48 kb 01/31 20:35 Order name: O2 Sat Monitoring; Complete Time: 20:48 kb 01/31 21:14 Order name: Labs - recollect needed: CBC only per lab; Complete Time: 21:22 ss 01/31 21:39 Order name: Urine Dipstick-Ancillary (obtain specimen); Complete Time: 22:01 7 01/31 21:39 Order name: Urine Test (obtain specimen); Complete Time: 22:01 7 02/01 00:08 Order name: CONS Physician Consult EDMS 02/01 00:08 Order name: Consistent Carb (ADA) 1800 Julio Cesar EDMS 02/01 00:08 Order name: EKG Electrocardiogram EDMS 02/01 00:08 Order name: EKG Electrocardiogram EDMS 02/01 00:08 Order name: EKG Electrocardiogram EDMS 02/01 00:08 Order name: EKG Electrocardiogram EDMS 02/01 00:08 Order name: EKG Electrocardiogram EDMS EC/08 21:45 Rate is 89 beats/min. Rhythm is regular. Left axis deviation noted. LA interval is mh7 normal. QRS interval is normal. QT interval is normal. No Q waves. T waves are Inverted in leads V1, V2, V3. No ST changes noted. Clinical impression: NSR w/ Non-specific ST/T Changes. Administered Medications: 21:30 Drug: Zofran (Ondansetron) 4 mg Route: IVP; Site: right forearm; ls4 22:40 Follow up: Response: No adverse reaction; Nausea is decreased mt2 21:30 Drug: Aspirin Chewable Tablet 324 mg Route: PO; ls4 22:40 Follow up: Response: No adverse reaction mt2 21:40 Drug: morphine 2 mg Route: IVP; Site: right forearm; ls4 22:40 Follow up: Response: No adverse reaction; Pain is unchanged, physician notified mt2 22:20 Drug: morphine 2 mg Route: IVP; Site: right forearm; ls4 22:55 Follow up: Response: No adverse reaction; Pain is unchanged, physician notified mt2 22:54 Drug: Phenergan 12.5 mg Route: IVP; Site: right forearm; mt2 23:13 Follow up: Response: No adverse reaction; Nausea is decreased mt2 02/01 00:01 Drug: NS 0.9% 1000 ml Route: IV; Rate: 1 bolus; Site: right forearm; mt2 00:35 Follow up: Response: No adverse reaction; IV Status: Infusion continued upon admission mt2 00:02 Drug: fentaNYL (PF) 25 mcg Route: IVP; Site: right forearm; mt2 00:26 Follow up: Response: No adverse reaction; Pain is decreased mt2 00:15 Drug: GI Cocktail without - (Maalox Suspension 30 ml, Lidocaine Liquid 2 % 15 mt2 ml) Route: PO; 00:26 Follow up: Response: No adverse reaction; Pain is decreased mt2 Disposition: 04:03 Co-signature as Attending Physician, Aaron Calderon MD. [facility] Disposition: 02/01/20 23:57 Hospitalization ordered by Charan Gray for Observation. Preliminary diagnosis is Chest pain, unspecified. - Bed requested for Telemetry/MedSurg (observation). - Status is Observation. mt2 - Condition is Stable. - Problem is new. - Symptoms have improved. Signatures: Dispatcher [employer] EDMS Nel Barragan, ARUNA-C CASING TESTER-Radha Lee RN RN Devorah Bose RN RN Danelle Champagne Melissa Stafford RN RN 4 Aaron Calderon MD MD [facility] Augusta Roach, RN RN mt2 Corrections: (The following items were deleted from the chart) 00:14 01/31 23:57 Hospitalization Ordered by hCaran Gray MD for Observation. Preliminary cg diagnosis is Chest pain, unspecified. Bed requested for Telemetry/MedSurg (observation). Status is Observation. Condition is Stable. Problem is new. Symptoms have improved. [facility] 02/01 00:47 00:02/01/2020 23:57 Hospitalization Ordered by Charan Gray MD for Observation. mt2 Preliminary diagnosis is Chest pain, unspecified. Bed requested for Telemetry/MedSurg (observation). Status is Observation. Condition is Stable. Problem is new. Symptoms have improved. cg
[2020-02-02] MEDS ORDERED: ACETAMINOPHEN 500 MG TAB PO PRN
[2020-02-02] MEDS ORDERED: FENTANYL CITR 100 MCG/2 ML ONE (00:06)
[2020-02-02] MEDS ORDERED: LIDOCAINE VISCOUS 2% SOLN 15 ML UDC ONE (00:20)
[2020-02-02] MEDS ORDERED: MAGNE/ALUM HYDROXD 30 ML UCUP ONE (00:20)
[2020-02-02 01:14] VITALS: BMI 34.2
[2020-02-02] MEDS: MORPHINE 4 MG/ML SYR IV PRN ×2 (01:41→04:46)
[2020-02-02] MEDS ORDERED: ONDANSETRON 4 MG/2 ML VIAL IV PRN ×2 (07:46)
[2020-02-02] MEDS: HYDROMORPHONE HCL 1 MG/ML INJ IV PRN ×3 (07:54→20:39)
[2020-02-02] MEDS: ASPIRIN EC 81 MG TAB PO SCH (08:15)
[2020-02-02] MEDS: ENOXAPARIN 40 MG/0.4 ML SQ SCH (08:15)
[2020-02-02 09:05] LABS: Albumin 3.3 g/dL (3.4-5.0); Alkaline Phosphatase 310 U/L (45-117); BUN Blood Urea Nitrogen 14 mg/dL (7-18); Bicarbonate 27 mmol/L (21-32); Bilirubin Total 1.2 mg/dL (0.2-1.0); Glucose Level 82 mg/dL (74-106); Lipase 856 U/L (73-393); Potassium 3.7 mmol/L (3.5-5.1); Protein, Total 6.9 g/dL (6.4-8.2); Sodium Level 142 mmol/L (136-145)
[2020-02-02 09:09] LABS: AST/SGOT 1383 U/L (15-37)
[2020-02-02 09:10] LABS: ALT/SGPT 657 U/L (12-78)
[2020-02-02] MEDS: Ringers Lactate 1,000 ML IV SCH ×2 (09:52→16:51)
--- NOTE | 2020-02-02 10:58 | RAD REPORT ---
EXAM DESCRIPTION: CT - Chest For Pe Angio - 02/02/2020 6:26 am CLINICAL HISTORY: CHEST PAIN TECHNIQUE: Contiguous axial images obtained through the chest during angiographic phase following th e uneventful administration of IV contrast. Sagittal and coronal reformatted images were provided. MS P reformatted images were provided. This exam was performed according to our departmental dose-optimization program, which includes autom ated exposure control, adjustment of the mA and/or kV according to patient size and/or use of iterati ve reconstruction technique. COMPARISON: 05/25/2019 FINDINGS: Diagnostic quality: There is good opacification of the pulmonary arterial tree. Lungs: No focal consolidation. Airways are patent. Pleura: No effusion. No pneumothorax. Heart and pericardium: The heart is normal in size. No pericardial effusion. Mediastinum and giovanna: No pathologically enlarged lymph nodes. Lower neck and chest wall: Unremarkable Vessels: No pulmonary arterial filling defects. No thoracic aortic aneurysm. Bones: Multilevel spondylosis. No acute fracture. IMPRESSION: 1. No pulmonary embolic disease. 2. No focal infiltrate. EXAM DESCRIPTION: CT ABDOMEN PELVIS WITH IV CONTRAST (accession [id number]) CLINICAL HISTORY: FLANK PAIN TECHNIQUE: Contiguous axial images obtained through the abdomen and pelvis following the uneventful administration of IV contrast. Coronal and sagittal reformatted images were provided. This exam was performed according to our departmental dose-optimization program, which includes autom ated exposure control, adjustment of the mA and/or kV according to patient size and/or use of iterati ve reconstruction technique. COMPARISON: None available for comparison FINDINGS: Liver: Unremarkable Gallbladder and biliary system: Prior cholecystectomy. Mild intrahepatic and extrahepatic biliary dil atation. Pancreas: Unremarkable Spleen: Unremarkable Adrenals: Unremarkable Kidneys: Normal renal cortical enhancement. Surgical clips adjacent to the lower pole on the right. N o calculi. No hydronephrosis. Bowel: Prior gastric bypass. Duodenal diverticulum. Moderate stool throughout the large bowel. No obs truction. No appreciable mucosal thickening. Appendix: Normal caliber appendix. No findings to suggest acute appendicitis. Urinary bladder: Unremarkable Reproductive: 1.9 cm right ovarian corpus luteal cyst. The uterus and left ovary are unremarkable as visualized. Lymph nodes: No pathologically enlarged lymph nodes. Peritoneum: No focal fluid collection. No free air. Vessels: No abdominal aortic aneurysm. Abdominal wall: Unremarkable Bones: Multilevel spondylosis. No acute fracture. IMPRESSION: 1. No acute inflammatory process identified within the abdomen and pelvis. 2. 1.9 cm right ovarian corpus luteum cyst. No follow-up imaging is recommended. Reference: J Am Rand Radiol 2013;10:675-681 3. Other findings as above. Electronically signed by: Shante Bernard MD 02/01/2020 11:20 PM CDT Due to temporary technical issues with the PACS/Fluency reporting system, reports are being signed by the in house radiologist without review as a courtesy to ensure prompt reporting. The interpreting r adiologist is fully responsible for the content of the report.
--- NOTE | 2020-02-02 11:00 | RAD REPORT ---
EXAM DESCRIPTION: CT - Abdomen Pelvis W Contrast - 02/02/2020 6:25 am CLINICAL HISTORY: CHEST PAIN TECHNIQUE: Contiguous axial images obtained through the chest during angiographic phase following th e uneventful administration of IV contrast. Sagittal and coronal reformatted images were provided. AK P reformatted images were provided. This exam was performed according to our departmental dose-optimization program, which includes autom ated exposure control, adjustment of the mA and/or kV according to patient size and/or use of iterati ve reconstruction technique. COMPARISON: 05/25/2019 FINDINGS: Diagnostic quality: There is good opacification of the pulmonary arterial tree. Lungs: No focal consolidation. Airways are patent. Pleura: No effusion. No pneumothorax. Heart and pericardium: The heart is normal in size. No pericardial effusion. Mediastinum and giovanna: No pathologically enlarged lymph nodes. Lower neck and chest wall: Unremarkable Vessels: No pulmonary arterial filling defects. No thoracic aortic aneurysm. Bones: Multilevel spondylosis. No acute fracture. IMPRESSION: 1. No pulmonary embolic disease. 2. No focal infiltrate. EXAM DESCRIPTION: CT ABDOMEN PELVIS WITH IV CONTRAST (accession [id number]) CLINICAL HISTORY: FLANK PAIN TECHNIQUE: Contiguous axial images obtained through the abdomen and pelvis following the uneventful administration of IV contrast. Coronal and sagittal reformatted images were provided. This exam was performed according to our departmental dose-optimization program, which includes autom ated exposure control, adjustment of the mA and/or kV according to patient size and/or use of iterati ve reconstruction technique. COMPARISON: None available for comparison FINDINGS: Liver: Unremarkable Gallbladder and biliary system: Prior cholecystectomy. Mild intrahepatic and extrahepatic biliary dil atation. Pancreas: Unremarkable Spleen: Unremarkable Adrenals: Unremarkable Kidneys: Normal renal cortical enhancement. Surgical clips adjacent to the lower pole on the right. N o calculi. No hydronephrosis. Bowel: Prior gastric bypass. Duodenal diverticulum. Moderate stool throughout the large bowel. No obs truction. No appreciable mucosal thickening. Appendix: Normal caliber appendix. No findings to suggest acute appendicitis. Urinary bladder: Unremarkable Reproductive: 1.9 cm right ovarian corpus luteal cyst. The uterus and left ovary are unremarkable as visualized. Lymph nodes: No pathologically enlarged lymph nodes. Peritoneum: No focal fluid collection. No free air. Vessels: No abdominal aortic aneurysm. Abdominal wall: Unremarkable Bones: Multilevel spondylosis. No acute fracture. IMPRESSION: 1. No acute inflammatory process identified within the abdomen and pelvis. 2. 1.9 cm right ovarian corpus luteum cyst. No follow-up imaging is recommended. Reference: J Am Rand Radiol 2013;10:675-681 3. Other findings as above. Electronically signed by: Shante Bernard MD 02/01/2020 11:20 PM CDT Due to temporary technical issues with the PACS/Fluency reporting system, reports are being signed by the in house radiologist without review as a courtesy to ensure prompt reporting. The interpreting r adiologist is fully responsible for the content of the report.
[2020-02-02] MEDS: SUMATRIPTAN SUCCI 50 MG TAB PO PRN ×2 (11:42→14:04)
[2020-02-02] MEDS: DIPHENHYDRAMINE 25 MG TAB/CAP PO PRN ×2 (14:31→20:38)
[2020-02-02] MEDS: PANTOPRAZOLE 40MG TABLET PO SCH (16:51)
[2020-02-02 17:49] LABS: Albumin 3.2 g/dL (3.4-5.0); Bilirubin Direct 0.6 mg/dL (0-0.2); Bilirubin Total 1.1 mg/dL (0.2-1.0); Ferritin 20.1 ng/mL (8-388); Protein, Total 6.4 g/dL (6.4-8.2)
--- NOTE | 2020-02-03 02:13 | HP ---
Date of Admission: 02/02/2020 Chief Complaint: Chest pain, vomiting. History Of Present Illness: This is a 49-year-old very pleasant female patient who came into emergency room with above-mentioned complaints. The patient says that the night before last she had chest pain that woke her up from middle of the night while she was sleeping. It was in the left upper anterior chest. It lasted for very brief period of time as she woke up from her sleep and she went to the bathroom, by the time she came back, her pain had resolved. Had no other associated symptoms. Yesterday morning, she felt fine when she woke up and all day she was feeling fine. Yesterday around 8 p.m. or so, she was going through drive-through at one of the local restaurant, and while she was in her car in the drive-through nidhi all of a sudden she started to have this really severe pain in her left upper anterior chest area. She describes that the pain is tightness type of feeling. She also had associated pain in the left shoulder and left jaw. She felt like she was having a little bit trouble breathing, so she got out of the car, and started walking around, and then subsequently she went home. After she went home, she had episode of vomiting. Later on, she was brought into the emergency room, and by the time she came to emergency room, she still had this pain, so it was almost at least 1 hour from the time that the chest pain had started. She came to emergency room, and during this entire 1- hour time, her pain was continuous. After she came to ER, she had second episode of vomiting. Morphine was given and her pain got resolved subsequently during cardiograph operator hours her pain came back. When I saw her, she was still having her left upper anterior chest pain. She denies any abdominal pain. No fever. No chills. No hemoptysis. Allergies: TO DOXYCYCLINE. Medications: List reviewed. Review of Systems: Cardiovascular: As mentioned above. GI: As mentioned above. All other systems reviewed and negative. Past Medical History: The patient was tested positive for COVID-19 on 01/10/2020, and she has recovered from this, has no symptoms of COVID-19, except her sense of smell and taste is somewhat altered; otherwise no other symptoms of COVID-19. All of her symptoms have resolved. Past medical history also significant for pseudotumor cerebri, hypothyroidism, hypertension, gastroesophageal reflux disease, hiatal hernia, kidney cancer. Past Surgical History: Gastric bypass surgery on 12/29/2018, presurgery weight was 385 pounds, cholecystectomy, hemorrhoid surgery, removal of lap band, partial nephrectomy, , and knee surgery. Family History: Significant for father with congestive heart failure, hypertension, atrial fibrillation; mother, rheumatoid arthritis. Social History: Negative for smoking or alcohol use. Physical Examination: Vital Signs: This morning when I saw her, temperature 97.8, pulse 65, respiratory rate 12, blood pressure 91/49, oxygen saturation 100%. Height 5 feet 6 inches, weight 212 pounds. General: Awake, alert, oriented, not in distress. HEENT: Head atraumatic, normocephalic. Conjunctivae nonerythematous. Sclerae white. Mouth, no thrush or edema noted. Ears/Nose, no mass, lesion, discharge noted. Neck: Supple. No JVD, lymph nodes, bruit, thyromegaly noted. Lungs: Bilateral good equal air entry. Clear to auscultation. No rhonchi. No rales. Heart: Normal heart sounds, no murmur or gallop. Abdomen: Soft, bowel sounds normal. No guarding, rigidity, tenderness, mass, hepatosplenomegaly, distention, or bruit noted. Extremities: No leg edema. No calf tenderness. Skin: No rash, ulcer, cellulitis. Lymphatics: No lymph node enlargement in neck, supraclavicular, infraclavicular region. Neuro: No focal neurological deficit. Chest: Unremarkable. External Genitalia: Deferred. Rectal: Deferred. Laboratory Data: White count 6.1, hemoglobin 14.4, platelets 226. INR 1.0. Sodium 139 last night with potassium 3.5, chloride 109, bicarb 24, BUN 22, creatinine 0.83, glucose 72. Liver function tests, total bilirubin 0.3, direct bilirubin 0.1, SGOT 446, SGPT 144, alkaline phosphatase 155. Troponin less than 0.02. Lipase 551. This morning repeat SGOT 1383, SGPT 657, alkaline phosphatase 310, total bilirubin 1.2, lipase 856. Her COVID-19 test came back positive. Chest x-ray; no acute cardiopulmonary changes. CAT scan of the abdomen and pelvis done in the emergency room shows no acute inflammatory process within the abdomen and pelvis, a 1.9 cm right ovarian corpus luteum cyst. CAT scan of the chest per PE protocol; no evidence of pulmonary emboli, no focal infiltrate. Impression: 1. Acute pancreatitis. 2. Acute hepatitis. 3. Chest pain. 4. Right kidney cancer. 5. Hypothyroidism. 6. Hypertension. 7. Gastroesophageal reflux disease. Plan: Admit the patient to the hospital for further evaluation and management of this problem. The patient is appropriate for inpatient and is expected to spend 2 midnights in hospital. Morphine did not help her with the pain this morning when I saw her, so I discontinued morphine and started her on Dilaudid. We will consult Cardiology and consult GI Service. Echocardiogram will be done. We will start the patient on lactated Ringer IV fluid. Repeat blood work tomorrow morning. DVT prophylaxis with Lovenox will be given and I will see her tomorrow for followup. We will leave her on clear liquid diet at this point. CASSIE/CARMINE Voice ID: [id number] [place]
[2020-02-03] MEDS: Ringers Lactate 1,000 ML IV SCH ×3 (03:17→18:08)
[2020-02-03 04:19] LABS: Absolute Lymphocytes (CBC) 1.8 K/uL (0.7-4.9); Basophils % 0.6 % (0-1.3); Hematocrit 34.9 % (36.0-45.0); Lymphocytes % 49.6 % (15.3-44.8); MPV 8.3 fL (7.6-11.3); RBC Red Blood Cell Count 4.08 M/uL (3.86-4.86)
[2020-02-03] MEDS: HYDROMORPHONE HCL 1 MG/ML INJ IV PRN (04:29)
[2020-02-03 04:59] LABS: Albumin 2.9 g/dL (3.4-5.0); Alkaline Phosphatase 310 U/L (45-117); BUN Blood Urea Nitrogen 9 mg/dL (7-18); Bicarbonate 23 mmol/L (21-32); Bilirubin Total 0.8 mg/dL (0.2-1.0); Glucose Level 66 mg/dL (74-106); Lipase 293 U/L (73-393); Potassium 3.9 mmol/L (3.5-5.1); Sodium Level 142 mmol/L (136-145)
[2020-02-03 05:18] LABS: ALT/SGPT 421 U/L (12-78); AST/SGOT 393 U/L (15-37)
--- NOTE | 2020-02-03 05:58 | EKG ---
Test Date: 2020-02-01 Test Time: 20:24:10 Internet Webmaster: MEASUREMENT RESULTS: Intervals: Rate: 89 IN: 160 QRSD: 92 QT: 362 QTc: 440 [place]: P: 60 IN: 160 QRS: -34 T: 55 INTERPRETIVE STATEMENTS: Normal sinus rhythm with sinus arrhythmia Left axis deviation Possible Anterior infarct, age undetermined Abnormal ECG Compared to ECG 05/09/2017 19:13:24 Left-axis deviation now present Myocardial infarct finding now present Electronically Signed On 02-03-20 05:55:33 CDT by Jorge Avila
--- NOTE | 2020-02-03 06:40 | CON ---
Date of Consultation: 02/02/2020 Reason For Consultation: Chest pain. History Of Present Illness: Ms. Glasgow is a 49-year-old woman without any previous cardiac history . She does have a history of heart disease in her family, has a history of gastroesophageal reflux d isease, hypothyroidism, but previous gastric bypass surgery, has lost significant amount of weight. Came in with a left upper chest pain with nausea and vomiting that lasted approximately for 2-3 days. She denied any fever or chills. Denied any cough, but has had cold within December. She denied PND, orthopnea, pedal edema, palpitations, or syncope. Past Medical History: As stated above. Allergies: INCLUDE SULFA. Review of Systems: Negative. Social History: Negative. Family History: Positive for heart disease. Physical Examination: Vital Signs: Stable. General: She was afebrile, very concerned about her symptoms. HEENT: Negative. Neck: Supple with no bruit. Chest: Clear. Cardiac: Revealed regular rhythm and rate. No murmurs, gallops, or rubs. Abdomen: Benign. Extremities: Revealed no clubbing, cyanosis, or edema. Diagnostic Data: Her troponin was negative. In March 2017, she had a normal echo and normal stre ss test. Her lipase was 551, alkaline phosphatase was 155, her ALT was 144, her AST was 446. Impression And Plan: 1.Atypical chest pain. I doubt this is cardiac in nature based on the location, the EKG, and lab wo rk. She had a strong family history of heart disease and the patient's concern from that regard I wi ll go ahead and order an echo and a Lexiscan on her. 2.History of recent COVID. 3.Hypothyroidism on Synthroid. 4.Status post gastric bypass surgery. 5.Gastroesophageal reflux disease. 6.Elevated liver function tests and lipase consistent with acute hepatitis versus pancreatitis. Dr. Regan is involved in the care. She is status post cholecystectomy. Concern for common bile duct obstruction as there as well. An MRCP has been planned by Dr. Regan. We will continue to follow . There were no change in medical therapy for now. NB/MODL Voice ID: [id number] Report ID: [id number]
[2020-02-03] MEDS ORDERED: REGADENOSON 0.4 MG/5 ML SYR IV ONE (08:24)
[2020-02-03] MEDS: PANTOPRAZOLE 40MG TABLET PO SCH (08:40)
--- NOTE | 2020-02-03 10:35 | RAD REPORT ---
EXAM DESCRIPTION: MRICholangiogram02/03/2020 10:17 am CLINICAL HISTORY: Abdominal pain COMPARISON: February 01, 2020 cat scan TECHNIQUE: Magnetic resonance cholangiogram was performed.3D MIP reconstruction performed FINDINGS: Cholecystectomy Mild dilatation of the intra and extrahepatic biliary tree. A filling defect is not seen. Pancreatic duct is normal caliber IMPRESSION: Mild dilatation of the intra and extrahepatic biliary tree. This probably is physiologic in this patient status post cholecystectomy
[2020-02-03] MEDS: SUMATRIPTAN SUCCI 50 MG TAB PO PRN (12:29)
[2020-02-03] MEDS: ASPIRIN EC 81 MG TAB PO SCH (12:32)
[2020-02-03] MEDS: ENOXAPARIN 40 MG/0.4 ML SQ SCH (12:32)
--- NOTE | 2020-02-03 12:43 | RAD REPORT ---
EXAM DESCRIPTION: NM - Rest Stress Cardiac Imaging - 02/03/2020 12:10 pm CLINICAL HISTORY: Chest pain. COMPARISON: 2016 TECHNIQUE: The patient was administered approximately 10mCi of Tc 99m Sestamibi prior to resting SPE CT imaging of the heart. The patient was then administered approximately 30 mCi of Tc 99m Sestamibi f ollowing exercise or pharmacologic stress. Multiplanar SPECT images were reviewed. FINDINGS: There is uniformity of radiotracer uptake involving the entire left ventricular myocardiu m on rest and stress images. The left ventricular ejection fraction equals 73% IMPRESSION: Negative for a myocardial perfusion defect
--- NOTE | 2020-02-03 13:10 | PN ---
Date of Progress Note: 02/03/2020 Subjective: Ms. Glasgow has been followed for chest pain. She came in with elevated liver function tests, elevated amylase, elevated alkaline phosphatase suggestive of hepatitis, pancreatitis or comm on bile duct occlusion. Hepatitis panel is pending. MRCP is pending. Echocardiogram is pending. L exiscan is pending. Her liver enzymes have improved today. No hemodynamic compromise and no arrhyth mias reported. We will await the results of the above studies before making a final decision. The c ase was discussed with Dr. Gray. OTONIEL/CARMINE Voice ID: [id number] Report ID: [id number]
[2020-02-03 15:34] LABS: AST/SGOT 237 U/L (15-37); Alkaline Phosphatase 304 U/L (45-117); BUN Blood Urea Nitrogen 10 mg/dL (7-18); Bicarbonate 23 mmol/L (21-32); Bilirubin Total 0.5 mg/dL (0.2-1.0); Glucose Level 58 mg/dL (74-106); Lipase 118 U/L (73-393); Potassium 3.6 mmol/L (3.5-5.1); Protein, Total 6.3 g/dL (6.4-8.2); Sodium Level 141 mmol/L (136-145)
[2020-02-03 15:36] LABS: ALT/SGPT 353 U/L (12-78)
--- NOTE | 2020-02-03 23:07 | PN ---
Date of Progress Note: 02/03/2020 Subjective: The patient was seen this morning for followup. No new complaints or problems reported by the patient. Overall, she is feeling better this morning when I saw her. Denies any nausea, vomi ting, abdominal pain. Objective: Vital Signs: Reviewed. HEENT: Unremarkable. Lungs: Clear to auscultation. Heart: Sounds normal. Abdomen: Soft. Bowel sounds normal. No guarding, rigidity, tenderness, or distention. Extremities: No leg edema. Laboratory Data: White count 3.6, hemoglobin 11.8, platelets 169. Sodium 142, potassium 3.9, chlori de 111, bicarb 23, BUN 9, creatinine 0.42, glucose 66, SGOT 393, SGPT 421, alkaline phosphatase 310, total bilirubin 0.8, lipase 290. Impression: 1.Acute pancreatitis, improved. 2.Acute hepatitis, etiology unknown, improving. 3.Chest pain, atypical. Plan: We will go ahead and continue current medications. The patient's renal function test seems to be improving well. Lipase has returned back to normal. She is on clear liquid diet. We will advan ce it to soft diet. Repeat blood work this afternoon was done and results reviewed. Her liver funct ion test this afternoon is somewhat better compared to this morning also. Her stress test was negati ve for any stress-induced ischemia and MRCP was negative for any signs of obstruction, mildly dilated hepatic duct and bile duct without any stone or obstruction, and this is likely due to cholecystecto my. No other abnormality noted on the MRCP. Details were discussed with Dr. Regan and he has sug gested no further intervention except followup at his office in 1-2 weeks. He has ordered acute hepa titis serology and he will follow up on those results on outpatient basis. I will see her tomorrow. Possible discharge to go home tomorrow. We will repeat blood work in the morning. CASSIE/MODL Voice ID: [id number] Report ID: [id number]
[2020-02-04] MEDS: Ringers Lactate 1,000 ML IV SCH (00:06)
[2020-02-04] MEDS: DIPHENHYDRAMINE 25 MG TAB/CAP PO PRN (00:06)
[2020-02-04 00:35] VITALS: TEMP 98.7
[2020-02-04 04:02] LABS: Absolute Lymphocytes (CBC) 2.3 K/uL (0.7-4.9); Basophils % 0.6 % (0-1.3); Hematocrit 34.6 % (36.0-45.0); Lymphocytes % 52.7 % (15.3-44.8); MPV 8.4 fL (7.6-11.3); RBC Red Blood Cell Count 4.09 M/uL (3.86-4.86)
[2020-02-04 04:18] LABS: ALT/SGPT 260 U/L (12-78); AST/SGOT 119 U/L (15-37); Albumin 2.6 g/dL (3.4-5.0); Alkaline Phosphatase 260 U/L (45-117); BUN Blood Urea Nitrogen 8 mg/dL (7-18); Bicarbonate 27 mmol/L (21-32); Bilirubin Total 0.4 mg/dL (0.2-1.0); Glucose Level 115 mg/dL (74-106); Lipase 183 U/L (73-393); Potassium 3.6 mmol/L (3.5-5.1); Protein, Total 5.9 g/dL (6.4-8.2); Sodium Level 143 mmol/L (136-145)
[2020-02-04 08:08] VITALS: BP 108/57
[2020-02-04] MEDS: PANTOPRAZOLE 40MG TABLET PO SCH (08:22)
[2020-02-04] MEDS: ASPIRIN EC 81 MG TAB PO SCH (08:22)
[2020-02-04] MEDS: ENOXAPARIN 40 MG/0.4 ML SQ SCH (08:22)
--- NOTE | 2020-02-04 09:20 | ECHO ---
HEIGHT: 5 ft 6 in WEIGHT: 212 lb 0 oz DATE OF STUDY: 02/03/[address]: Jorge Avila MD 2-DIMENSIONAL: YES M.MODE: YES DOPPLER: YES COLOR FLOW: YES TDS: NO PORTABLE: NO DEFINITY: NO BUBBLE STUDY: NO DIAGNOSIS: CHEST PAIN CARDIAC HISTORY: CATHERIZATION: NO SURGERY: NO PROSTHETIC VALVE: NO PACEMAKER: NO MEASUREMENTS (cm) DIASTOLIC (NORMALS) SYSTOLIC (NORMALS) IVSd 1.0 (0.6-1.2) LA Diam 3.6 (1.9-4.0) LVEF 71% LVIDd 5.1 (3.5-5.7) LVIDs 3.0 (2.0-3.5) %FS 41% LVPWd 1.1 (0.6-1.2) Ao Diam 2.7 (2.0-3.7) 2 DIMENSIONAL ASSESSMENT: RIGHT ATRIUM: NORMAL LEFT ATRIUM: NORMAL RIGHT VENTRICLE: NORMAL LEFT VENTRICLE: NORMAL TRICUSPID VALVE: NORMAL MITRAL VALVE: PULMONIC VALVE: NORMAL AORTIC VALVE: NORMAL PERICARDIAL EFFUSION: NONE AORTIC ROOT: NORMAL LEFT VENTRICULAR WALL MOTION: NORMAL DOPPLER/COLOR FLOW: NORMAL COMMENTS: NORMAL LEFT VENTRICULAR EJECTION FRACTION 55-60%. NORMAL WALL MOTION. NORMAL DIASTOLIC FUNCTION. TRACE MITRAL REGURGITATION. TECHNOLOGIST: Susan RISO
[2020-02-04 09:41] VITALS: O2SAT 98
--- NOTE | 2020-02-04 10:05 | TREADPHA ---
DX: CHEST PAIN Date of Study: 02/03/2020 Ht: 5' 6 " Wt: 212 lb 0 oz Consulting Physician: IVON MEDICATIONS: TYLENOL, ASPIRIN, LOVENOX, DILAUDID, ZOFRAN, IMITREX HISTORY: 49 YEAR OLD FEMALE WITH HISTORY OF MIGRAINES, GERD, HYPOTHYRODISM, KIDNEY CANCER AND GASTRIC BYPASS. ADMITTED FOR CHEST PAIN. PHYSICIAL EXAMINATION: RESTING B.P.: 100/52 RESTING H.R.: 60 RESTING EKG: NORMAL SINUS RHYTHM. HEART RATE 60. LOW VOLTAGE. PROTOCOL: LEXISCAN EXERCISE TIME: 3:30 B.P. AT PEAK STRESS: 110/58 IMPRESSION: LEXISCAN STRESS TEST PERFORMED. CARDIOLITE INJECTED PER PROTOCOL. NO SUPRAVENTRICULAR TACHYCARDIA. NO VENTRICULAR TACHYCARDIA. NO ARRYTHMIAS NOTED. PATIENT DENIED ANY CHEST PAIN. RESPIRATORY EVEN AND NON LABORED. TOLERATED WELL. NO STRESS INDUCED ISCHEMIA PER EKG.
--- NOTE | 2020-02-04 10:47 | DS ---
Date of Discharge: 02/04/2020 Disposition: Discharged to go home. Physical Examination: HEENT: Unremarkable. Lungs: Clear to auscultation. Heart: Sounds normal. Abdomen: Soft. Bowel sounds normal. No guarding, rigidity, tenderness, or distention. Extremities: No leg edema. Discharge Medications And Instructions: 1. Continue prior home medication. 2. May return to work on 02/07/2020. 3. Follow with Dr. Regan in 2 weeks. 4. Follow up at my office in 1 month. Hospital Course: This is a 49-year-old female patient admitted to the hospital after she presented to emergency room with complaints of chest pain. After the patient was evaluated in the emergency room, she was admitted to the hospital. Her liver function test was abnormal. Lipase was elevated. SGOT, SGPT, and alkaline phosphatase was elevated. Cardiac enzymes remained negative and I will rule out by getting serial cardiac. Cardiology consultation was requested from Dr. Avila and GI consultation was requested from Dr. Regan. Her chest pain was atypical in nature. Chest x-ray was negative and CT chest showed no evidence of pulmonary embolism, this was PE protocol study. There was no evidence of any other acute lung findings. CAT scan of abdomen and pelvis was unremarkable, no evidence of any abnormality in the pancreas or liver. Her AST went up day after admission, the highest level was 1383, ALT 657, alkaline phosphatase highest level was 352. Last blood work today; sodium 143, potassium 3.6, chloride 112, bicarb 27, BUN 8, creatinine 0.48, glucose 115, AST today 119, ALT 260, alkaline phosphatase 260, and lipase today 183. She had MRCP done, which showed dilated intra and extrahepatic duct. No evidence of any stone or any mass or any evidence of any obstruction and patient is status post cholecystectomy, so this is physiological for her after cholecystectomy. No other abnormality noted on MRCP. Her stress test came back negative for stress- induced ischemia. The patient is feeling much better. She was initially on clear liquid diet, we advanced it to soft diet yesterday, and she is tolerating that well. She does not have any abdominal pain. No nausea or vomiting after admission to the hospital. Acute hepatitis profile was done by Dr. Regan, result pending and he will follow up on outpatient basis on those results and he will also follow up with the patient in about 2 weeks. The patient's COVID-19 test was positive, but this is a persistent positive test for her even after she has recovered from COVID-19 almost 3 to 4 weeks ago when she had her first positive test. Final Diagnoses: 1. Acute pancreatitis. 2. Acute hepatitis. 3. Chest pain. 4. Right kidney cancer. 5. Hypothyroidism. 6. Hypertension. 7. Gastroesophageal reflux disease. CASSIE/MODL Voice ID: [id number] Report ID: [id number] MTDKaylie
[2020-02-08 04:00] LABS: HBsAG Nonreactive (Nonreactive)
== END 2020-02-04 10:18 | disposition home or self-care (01) ==
LOC: ER 20:16 → ERHOLD 23:59 → 2ND 02-02 00:22 → 3RD-ICU 02-02 05:10 → 4TH 02-02 09:44
PROVIDERS: ADMIT Internal Medicine; ATTEND Internal Medicine
DX: R07.89 Other chest pain (principal); U07.1 COVID-19; K85.90 Acute pancreatitis without necrosis or infection, unspecified; B17.9 Acute viral hepatitis, unspecified; E03.9 Hypothyroidism, unspecified; I10 Essential (primary) hypertension; K21.9 Gastro-esophageal reflux disease without esophagitis; G93.2 Benign intracranial hypertension; K44.9 Diaphragmatic hernia without obstruction or gangrene; R79.89 Other specified abnormal findings of blood chemistry; Z85.528 Personal history of other malignant neoplasm of kidney; Z88.2 Allergy status to sulfonamides; Z88.3 Allergy status to other anti-infective agents; Z90.49 Acquired absence of other specified parts of digestive tract; Z98.84 Bariatric surgery status; Z82.49 Family history of ischemic heart disease and other diseases of the circulatory system; Z82.61 Family history of arthritis
CPT/HCPCS: 96361; 93005 ×2; 93017; 93306; 85025 ×3; 80048; 36415 ×2; 83735; 81025; 85610; 80076 ×2; 84443; 81003; 84484 ×3; 84439; 82728; 83690 ×5; 83540; 80053 ×4; 86704; 86038; 86255 ×2; 83880; 84466; 82390; 80074; 71275; 74177; 71045; 74181; 78452; 96375; 96374; 99285; U0003; Q9967; J2550; J1650 ×3; J2270 ×2; J1170 ×4; J2785; J7120 ×5; J2405; A9500; G0378 ×4

== ENCOUNTER 2020-08-27 07:19 | Emergency (ER) | payer OTHER ==
--- OUTSIDE RECORDS SUMMARY | 2020-08-27 07:22 | XMS REPORT | Continuity of Care Document ---
:1970 Author Organization [facility] t Address [address] Andrews [address] [place] [id number] Care Team Providers Name Role Phone KEV Primary Care Physician Unavailable Arleth STEINBERG Attending Clinician KEV Attending Clinician Unavailable Kev STEINBERG Attending Clinician Cale Torre APN Attending Clinician Katherine MORENO A Attending Clinician Khushboo SUÁREZ Attending Clinician Unavailable Ernestine STEINBERG Attending Clinician Jed SINHA Attending Clinician Unavailable TY HERNANDEZ Attending Clinician Unavailable Jed SINHA Admitting Clinician Unavailable TY HERNANDEZ Admitting Clinician Unavailable Payers Payer Name Policy Type Policy Effective Date Expiration Date Sour ce Number [facility] [id number] 2020 MD Garcia CAREAETNA 00:00:00 [id number] 2020- PresentHMO VARNEY [id number] 2011 MD Garcia HEALTHCAREUNITED 00:00:00 HEALTHCARE [id number] 2011-P resentPPO Problems Condition Condition Condition Status Onset Resolution Last Treating Co mments Source Name Details Category Date Date Treatment Clinician Date Morbid Morbid Disease Active [facility]-29 [facility] Gastroesop Gastroesop Disease Active [facility] hageal hageal 12-29 [facility] - reflux reflux 00:00: Medical disease disease 00 Center with with esophagiti esophagiti s s Recovery Recovery Disease Active 2016-05 MD following following 06-22 Andrae rso surgery surgery 00:00: n 00 Migraine Migraine Disease Active 2016-05 06-22 Anderso 00:00: n 00 Essential Essential Disease Active 2016-05 (primary) (primary) 06-22 Andrae rso hypertensi hypertensi 00:00: n on on 00 Gastroesop Gastroesop Disease Active 2016-05 M D hageal hageal 06-22 Anderso reflux reflux 00:00: n disease disease 00 Renal mass Renal mass Disease Active 2016-05 Overview : 06-15 Added Anderso 00:00: automatic n 00 ally from request for surgery [id number] Allergies, Adverse Reactions, Alerts Allergy Allergy Status Severity Reaction(s) Onset Inactive Treating Comm ents Source Name Type Date Date Clinician Adhesive Drug Active Rash 2016-[address] [facility] Allergy 06-21 [facility] 00 Center Sulfa Propensi Active Other (See 2016-[address] (Sulfona ty to Comments) 06-09 documente [facility] adverse 00:00: d Medical Antibiot reaction 00 reaction, Lelo ter ics) s advised to avoid due to intracran ial HTN Family History Family Member Diagnosis Comments Start Date Stop Date Source Paternal Cancer [facility] Grace stoner Paternal -Breast cancer MD Jayce alberts grandmother Paternal -Gastrointestinal Andrae rstegan grandmother (Esophagus, Liver, Bile Duct, Stomach, Pancreas, Colon, Rectum, Anus Paternal -Unknown cancer Ben on grandmother Natural father Heart disease [facility] Natural father Heart failure [facility] Natural father Hyperlipidemia [facility] Natural father Hypertension [facility] Natural father Hypertension Jimmy son Maternal Cancer [facility] Grace stoner Maternal -Lymphoma MD Garcia grandmother Maternal Hypertension MD Garcia grandmother Maternal aunt -Breast cancer Andrae rstegan Paternal -Skin (not Melanoma) MD Adkins nderson grandfather Social History Social Habit Start Date Stop Date Quantity Comments Source History SDOH [facility] - Alcohol Std Drinks Medica l Center History SDOH [facility] - Alcohol Binge Medical Lelo ter Sex Assigned At [facility] Tobacco use and 2018-12-30 2018-12-30 Never used [facility] St Robina encarnacion - exposure 00:00:00 00:00:00 [facility] Alcohol intake 2018-12-30 2018-12-30 Current [facility] St Day es - 00:00:00 00:00:00 non-drinker of Medical Ce nter alcohol (finding) Alcohol Comment 2018-11-24 2018-11-24 rare [facility] St Robina encarnacion - 00:00:00 00:00:00 [facility] Center History SDOH 2018-08-31 2018-08-31 [address] [facility] [address] [facility] - Alcohol Frequency 00:00:00 00:00:00 [facility] Center Smoking Status Start Date Stop Date Source Never smoker [facility] Medications Ordered Filled Start Stop Current Ordering Indication Dosage Frequency Signature Comments Components Source Medication Medication Date Date Medication? Clinician (SIG) Name Name escitalopra Yes 5mg Take 5 mg M D m (LEXAPRO) 2-03 by mouth Andrae rso 5 mg tablet 17:01: daily. n 52 fluticasone Yes 2{spray Inhale 2 MD propionate 2-03 } sprays Anderso (FLONASE) 17:01: into each n 50 52 nostril as mcg/spray needed for nasal spray allergies. omeprazole Yes 40mg Take 40 mg M D (PriLOSEC) 9-11 by mouth Jimmy so 40 MG 15:58: daily. n capsule 16 levothyroxi Yes 75ug Take 75 MD ne 9-11 mcg by Anderso (SYNTHROID, 15:56: mouth n LEVOTHROID) 56 daily. 50 mcg tablet budesonide- Yes 2{puff} Inhale [address] formoterol 8-07 puffs by [facility] - (SYMBICORT) 12:38: mouth via M edical 160-4.5 24 inhaler as Center mcg/actuati needed . on inhaler DULoxetine Yes 30mg QD Take [address] (CYMBALTA) 8-07 by mouth [facility] - 30 MG 12:38: daily. Medical capsule 24 Center levothyroxi Yes 75ug Take [address] ne 8-07 mcg by [facility] - (SYNTHROID, 12:38: mouth Medic al LEVOTHROID) 24 Every Center 50 MCG morning on tablet an empty stomach . acetaZOLAMI Yes 200mg Q.5D Take [address] [place] (DIAMOX) 8-07 mg by [facility] - 500 mg 12 12:38: mouth 2 Medic al hr capsule 24 (two) Center times daily . albuterol 0 Yes 1{puff} Inhale [address] HFA 8-07 puff by [facility] - (VENTOLIN 12:38: mouth via Med ical HFA) 90 24 inhaler Center mcg/actuati every 6 on inhaler (six) hours as needed for Wheezing. dilTIAZem Yes 30mg QD Take [address] (CARDIZEM) 8-07 by mouth [facility] - 30 MG 12:38: daily . Medical tablet 24 [place] cetirizine Yes 10mg Take [address] (ZYRTEC) 10 8-07 by mouth Luke s - MG tablet 12:38: as needed Med ical 24 . [place] spironolact Yes 25mg Take [address] [facility] one 8-07 by mouth 2 [facility] - (ALDACTONE) 12:38: (two) Medic al 25 MG 24 times Center tablet daily as needed . topiramate Yes 150mg QD Take [address] (QUDEXY XR) 8-07 mg by [facility] - 150 mg CSpX 12:38: mouth Medic al 24 nightly Center Qudexy . topiramate Yes 50mg QD Take [address] (TOPAMAX) 8-07 by mouth [facility] - 25 MG 12:38: daily . Medical tablet 24 [place] ferrous 0 Yes 325mg Take 325 [facility] sulfate 325 8-07 mg by [facility] - (65 FE) MG 12:38: mouth 3 Medi johan EC tablet 24 (three) Center times daily with meals. cholecalcif Yes 5000U QD Take 5,[address] jeannie, 8-07 Units by [facility] - vitamin D3, 12:38: mouth Medic al 5,000 unit 24 daily. [place] Tab topiramate Yes 150mg QD Take [address] (QUDEXY XR) 8-07 mg by [facility] - 150 mg CSpX 12:38: mouth Medic al 24 daily. [place] dexlansopra Yes 60mg QD Take [address] zole 60 mg 12-30 capsule [facility] - capsule 00:00: (60 mg Medical 00 total) by Center mouth daily. albuterol Yes (PROAIR 10-24 Beno HFA) 90 00:00: n mcg/puff 00 inhaler Vital Signs Vital Name Observation Time Observation Value Comments Source HEIGHT 2020-06-28 10:37:00 169.5 cm WEIGHT 2020-06-28 10:37:00 95.6 kg HEIGHT 2020-06-28 10:37:00 169.5 cm WEIGHT 2020-06-28 10:37:00 95.6 kg Systolic blood pressure 2020-06-28 16:41:16 114 mm[Hg] MD Garcia Diastolic blood pressure 2020-06-28 16:41:16 75 mm[Hg] MD Garcia Heart rate 2020-06-28 16:41:16 56 /min MD Jimmy corrales Body temperature 2020-06-28 16:41:16 36.28 Elo MD Jed lopez Respiratory rate 2020-06-28 16:41:16 18 /min MD Jed lopez Oxygen saturation in 2020-06-28 16:41:16 98 /min MD Garcia Arterial blood by Pulse oximetry Body height 2020-06-28 16:37:00 169.5 cm MD Jimmy corrales Body weight 2020-06-28 16:37:00 95.6 kg MD Jimmy corrales BMI 2020-06-28 16:37:00 33.28 kg/m2 MD Jimmy corrales Procedures Procedure Date / Time Performed Performing Clinician [facility] CT CHEST ABDOMEN W CONTRAST 2020-06-28 01:53:24 Prateek Angulo MD COMPLETE BLOOD COUNT W/ 2020-06-27 23:30:00 Alcon Angulo MD DIFFERENTIAL COMPREHENSIVE METABOLIC PANEL 2020-06-27 23:30:00 Cherri Angulo MD LACTATE DEHYDROGENASE 2020-06-27 23:30:00 Alcon Angulo MD Results CBC 2020-06-27 23:30:00 Alcon Angulo MD n MANUAL DIFFERENTIAL 2020-06-27 23:30:00 Alcon Angulo MD And [facility] GLUCOSE LEVEL 2020-06-27 23:30:00 Alcon Angulo MD BLOOD UREA NITROGEN 2020-06-27 23:30:00 Alcon Angulo MD And erson ELECTROLYTE PANEL 2020-06-27 23:30:00 Alcon Angulo MD Jimmy son SERUM CREATININE 2020-06-27 23:30:00 Alcon Angulo MD Ben on .GLOMERULAR FILTRATION RATE 2020-06-27 23:30:00 Prateek Angulo MD CALCIUM LEVEL TOTAL 2020-06-27 23:30:00 Alcon Angulo MD And erstegan ALBUMIN LEVEL 2020-06-27 23:30:00 Alcon Angulo MD ALKALINE PHOSPHATASE 2020-06-27 23:30:00 Alcon Angulo MD ALANINE AMINOTRANSFERASE 2020-06-27 23:30:00 Alcon Angulo ASPARTATE AMINOTRANSFERASE 2020-06-27 23:30:00 Alcon Angulo MD TOTAL PROTEIN 2020-06-27 23:30:00 Alcon Angulo MD FRACTIONATED BILIRUBIN 2020-06-27 23:30:00 Alcon Angulo MD Plan of Care Planned Activity Planned Date Details Comments Source Future Scheduled 2021-11-[address] [facility] - Test 00:00:00 (procedure) [code = [facility] 44195524] Future Scheduled 2020-05-[address] [facility] - Test 00:00:00 (12+) [code = [facility] Center DEPRESSION SCREENING (12+)] Future Scheduled 2020-01-[address] [facility] - Test 00:00:00 (#1) [code = [facility] Center INFLUENZA VACCINE (#1)] Future Scheduled [address] [facility] - Test 00:00:00 malignant neoplasm of Medica l Center cervix (procedure) [code = 030565507] Future Scheduled 1990 HEPATITIS C [facility]CRE[facility]ING [facility] - Test 00:00:00 [code = HEPATITIS C Medical Center SCREENING] Future Scheduled 1979 DTAP/TDAP/TD VACCINES [facility] - Test 00:00:00 (1 - Tdap) [code = Medical C enter DTAP/TDAP/TD VACCINES (1 - Tdap)] Encounters Start End Encounter Admission Attending Care Care Encounter Source Date/Time Date/Time Type Type Clinicians Facility Department ID 2020-06-28 2020-06-28 Outpatient YUKO ANGULO MDA GARRISON [id number] 10:29:47 11:18:01 ALCON alberts 2020-06-27 2020-06-27 Outpatient YUKO ANGULO MDA GARRISON [id number] 17:35:02 23:59:00 ALCON alberts 2020-06-27 2020-06-27 Outpatient YUKO ANGULO MDA GARRISON [id number] 17:24:27 17:34:00 ALCON Castanon natancarine n 2019-10-27 2019-10-27 Office IRMA Murphy [id number] 13:51:40 15:24:56 Visit Danyelldaphnieezio Adkins AMBULATOR [id number] Y [id number] [id number] 2019-01-18 2019-01-18 Office IRMA Cuello [id number] 09:26:08 13:14:40 Visit Verónica AMBULATOR [id number] Y [id number] [id number] 2019-01-18 2019-01-18 Office IRMA Sinha [id number] 07:49:07 11:47:45 Visit Sb AMBULATOR [id number] Y [id number] [id number] 2018-12-23 2018-12-23 Office IRMA Sinha [id number] 13:54:21 15:58:00 Visit Sb AMBULATOR [id number] Y [id number] [id number] Results Test Test Test Results Result Source Description Time Comments Comments CT Chest 2020-06- Stable postsurgical MD Adkins nderson Abdomen with 03 changes, related to right Contrast 14:44:49 partial nephrectomy, no evidence of disease recurrence or metastasis. Interface, Radiology Results In - 06/28/2020 8:47 AM CSTFULL RESULT:Examination: CT CHEST ABDOMEN W CONTRAST, 06/27/2020 7:53 PMClinical History: Malignant neoplasm of right kidney, except renal pelvisIndication: COVID-19 Not Suspected, RCC s/p right partial nephrectomyComparison: 08/10/2019Technique: CT of the chest and abdomen was performed with intravenous contrast.Findings: Chest:Lungs appear stable in comparison to prior study, no suspicious new pulmonary nodules atelectasis lung basesNo significant mediastinal hilar or axillary lymphadenopathyAbdomen pelvis:Gastric bypass procedure noted.Liver appears stable in comparison to prior study, no suspicious new liver lesions.\\Gallbladder is surgically absent cholecystectomy clips notedCBD normal caliberBilateral adrenal glands appear unremarkableSpleen, pancreas appears unremarkable, no significant pancreatic ductal dilation.Stable posttreatment changes noted right kidney, no local recurrence or new lesions identified.Region of fat density and nodularity seen adjacent to the upper pole of the right kidney, likely representing region of fat necrosis.Stable appearance left kidney no hydronephrosis.No significant new mesenteric, retroperitoneal pelvic or inguinal lymphadenopathy. Stable subcentimeter lymph nodes again noted.No suspicious new osseous lesionsPelvis not evaluated on this study.IMPRESSION:Stable postsurgical changes, related to right partial nephrectomy, no evidence of disease recurrence or metastasis. Fractionated Bilirubin 2020-06-28 00:09:40 Test Item Value Reference Range Interpretation Comme nts Bili Total (test code = 0.3 mg/dL See_Comment Indo cyanine Green (ICG) may cause 5096) falsely elevate d bilirubin results. Total and direct bilirubin must not be measured from samples co ntaining indocyanine gre en. False elevation of total biliru bin can be seen in patients with I gG concentrations above 28 g/L. [Automated message] The system [employer] generated this result transmit dejon reference range: <=1.2. T he reference range was not used to interpret this result as steve l/abnormal. Bili Direct (test code = <0.2 See_Comment Ind ocyanine Green (ICG) may cause 5094) falsely elevate d bilirubin results. Total and direct bilirubin must not be measured from samples co ntaining indocyanine gre en. [Automated message] The sy stem which generated this result transmitted reference range : <=0.3 mg/dL. The reference range was not used to interpret this result as normal/abnormal . Bili Indirect (test code = See Note 0-0.9 U nable to calculate Indirect 5095) Bilirubin resul t due to some parameters are outside reportable range MD GarciaGlomerular Filtration [id number] 00:09:39 Test Item Value Reference Range Interpretation Comments eGFR-AA (test code 122 See_Comment Normal eG FR: >= 60 = 8062) mL/min/1.73 m2N ote: The eGFR is calculated u sing the CKD-EPI equatio n. The eGFR declines with a ge. eGFR <60 mL/min/1.73 m2 is considered as "decreased". This equation should only be used for patients 18 and older. According to th e National Kidney Foundati on's Kidney Disease Outcome Quality Initiative (KDO QI) classification and 2012 Kidney Disease Improving Global Outcomes (KDIGO) Clinical Practi ce Guideline, the stage of CK D should be categorized bas ed on estimated GFR. Stage Description GFR mL/min/1.73 m21 Normal or high GFR >=902 Mildly decrease d GFR 60-893a M ildly to moderately decr eased GFR 45-593b Moderat kristin to severely decrea sed GFR 30-444 Severely decreased GFR 15-295 Kid kandice failure <15 [Automa dejon message] The system [employer] generated this result tra nsmitted reference range : >=60 mL/min/1.73 sq. m. The reference range was not used to interpret th is result as normal/abnormal . eGFR-SAHRA (test code 106 See_Comment Normal e GFR: >= 60 = 8063) mL/min/1.73 m2N ote: The eGFR is calculated u sing the CKD-EPI equatio n. The eGFR declines with a ge. eGFR <60 mL/min/1.73 m2 is considered as "decreased". This equation should only be used for patients 18 and older. According to th e National Kidney Foundati on's Kidney Disease Outcome Quality Initiative (KDO QI) classification and 2012 Kidney Disease Improving Global Outcomes (KDIGO) Clinical Practi ce Guideline, the stage of CK D should be categorized bas ed on estimated GFR. Stage Description GFR mL/min/1.73 m21 Normal or high GFR >=902 Mildly decrease d GFR 60-893a M ildly to moderately decr eased GFR 45-593b Moderat kristin to severely decrea sed GFR 30-444 Severely decreased GFR 15-295 Kid kandice failure <15 [Automa dejon message] The system [employer] generated this result tra nsmitted reference range : >=60 mL/min/1.73 sq. m. The reference range was not used to interpret th is result as normal/abnormal . MD GarciaLactate [id number] 00:09:37 Test Item Value Reference Range Interpretation Comments LDH (test code = 190 U/L 135-214 Results gre ater than 1651 6111) U/L may not be reliable due to matrix effec t with extended diluti on as it exceeds the man ufacturer s recommended l imit. Caution should be exercised when interpreti ng such values and done in conjunction wit h clinical context. MD GarciaAlkaline [id number] 00:09:36 Test Item Value Reference Range Interpretation Comments Alk Phos (test code = 4768) 89 U/L 35-104 MD GarciaAlbumin [id number] 00:09:35 Test Item Value Reference Range Interpretation Comments Albumin Lvl (test code 4.3 See_Comment [Aut omated message] The = 2291) system which ge nerated this result tra nsmitted reference range : 3.5 - 5.2 gm/dL. The refe rence range was not used to interpret this result as normal/abnormal . MD GarciaAspartate [id number] 00:09:34 Test Item Value Reference Range Interpretation Comments AST (test code = 23 U/L See_Comment [Automated message] The 8978) system which ge nerated this result transmit dejon reference range : <=32. The reference range was not used to interpr et this result as steve l/abnormal. MD GarciaElectrolyte [id number] 00:09:33 Test Item Value Reference Range Interpretation Comments Sodium Lvl (test code = 144 See_Comment [Au tomated message] 3026) The system [employer] generated this result transmitted ref erence range: 136 - 14 5 mEq/L. The refe rence range was not u sed to interpret this result as normal/abnor mal. Potassium Lvl (test code 4.6 See_Comment [A utomated message] = 1660) The system [employer] generated this result transmitted ref erence range: 3.5 - 5. 1 mEq/L. The refe rence range was not u sed to interpret this result as normal/abnor mal. Chloride (test code = 105 See_Comment [Auto mated message] 6789) The system [employer] generated this result transmitted ref erence range: 98 - 107 mEq/L. The refe rence range was not u sed to interpret this result as normal/abnor mal. CO2 (test code = 5227) 30 See_Comment H [Aut omated message] The system [employer] generated this result transmitted ref erence range: 22 - 29 mEq/L. The reference r wesley was not used to interpret this result as normal/abnor mal. Anion Gap (test code = 9 See_Comment [Aut omated message] 5364) The system [employer] generated this result transmitted ref erence range: 4 - 14 m Eq/L. The reference r wesley was not used to interpret this result as normal/abnor mal. Lab Interpretation (test Abnormal code = 99683-1) MD Garcia.Serum [id number] 00:09:31 Test Item Value Reference Range Interpretation Comments Creatinine (test code = 5399) 0.65 mg/dL 0.51-0.95 MD GarciaTotal [id number] 00:09:30 Test Item Value Reference Range Interpretation Comments Total Protein (test code = 7649) 7.1 g/dL 6.4-8.3 MD GarciaCalcium [id number] 00:09:29 Test Item Value Reference Range Interpretation Comments Calcium Lvl (test code = 5258) 9.3 mg/dL 8.4-10.2 MD [id number] 00:09:28 Test Item Value Reference Range Interpretation Comments ALT (test code = 18 U/L See_Comment [Automated message] The 4709) system which ge nerated this result transmit dejon reference range : <=33. The reference range was not used to interpr et this result as steve l/abnormal. MD [id number] 00:09:27 Test Item Value Reference Range Interpretation Comments BUN (test code = 5055) 17 mg/dL 6-23 MD GarciaGlucose [id number] 00:09:26 Test Item Value Reference Range Interpretation Comments Glucose Level (test 99 mg/dL 70-99 Effectiv e 12/20/15, the code = 5699) glucose referen ce intervals have been updated based o n [place] [employer] eden delines (Standards of M edical Care in Diabete s 2016. Diabetes Care 2 016; 39: S13-S22).Fastin g blood glucose:Normal: 70 99 mg/dLImpaire d fasting glucose (increa sed risk for diabetes or pre-diabetes): 100 125 mg/dLDiabet es mellitus: >/=1 26 mg/dL Random blood glucose:Normal: 70 199 mg/dLNote: Random glucose >100 mg /dL is associated with increased risk for diabetes MD G[id number] 23:52:51 Test Item Value Reference Range Interpretation Comments Neutrophil % (test code = 39.9 % 42-66 L 6491) Lymphocyte % (test code = 49.4 % 24-44 H 6194) Monocyte % (test code = 7.0 % 2-7 6422) Eosinophil % (test code = 2.3 % 1-4 5520) Basophil % (test code = 1.2 % 0-1 H 5068) IGRE % (test code = 5958) 0.2 % 0-0.4 IG RE % count includes Metamyelocytes, Myelocytes, and Promyelocytes. Neutrophil Abs (test code 1.71 K/uL 1.7-7.3 = 6492) Lymphocyte Abs (test code 2.12 K/uL 1-4.8 = 6195) Monocyte Abs (test code = 0.30 K/uL 0.08-0.7 6423) Eosinophil Abs (test code 0.10 K/uL 0.04-0.4 = 5521) Basophil Abs (test code = 0.05 K/uL 0-0.1 5069) IG Abs (test code = 5954) 0.01 K/uL 0-0.04 Lab Interpretation (test Abnormal code = 41315-3) MD Garcia.[id number] 23:52:48 Test Item Value Reference Range Interpretation Comments WBC (test code = 8034) 4.3 K/uL 4-11 RBC (test code = 6932) 4.72 See_Comment [Aut omated message] The system [employer] generated this result transmitted ref erence range: 4.00 - 5 .50 M/uL. The refer ence range was not u sed to interpret this result as normal/abnor mal. Hgb (test code = 5898) 11.7 See_Comment L [Aut omated message] The system [employer] generated this result transmitted ref erence range: 12.0 - 1 6.0 gm/dL. The refe rence range was not u sed to interpret this result as normal/abnor mal. Hct (test code = 5860) 38.4 % 37-47 MCV (test code = 6222) 81 fL 82-98 L MCH (test code = 6220) 24.8 pg 27-31 L MCHC (test code = 6221) 30.5 See_Comment L [Au tomated message] The system [employer] generated this result transmitted ref erence range: 31.0 - 3 6.0 gm/dL. The refe rence range was not u sed to interpret this result as normal/abnor mal. RDW-SD (test code = 45.5 fL 35.1-46.3 6972) RDW-CV (test code = 15.4 % 12-15.5 6971) Platelet count (test 219 K/uL 140-440 code = 6832) MPV (test code = 6282) 9.8 fL 4-10.4 INRBC (test code = 0.0 % See_Comment The INRBC (instrument 5974) NRBC) value ref lects the enumeration of nucleated red b lood cells contained in a 200uL sampleof whole blood analyzed by the instrument. Thi s value maydiffer from the NRBC value repo rted in a manual differential,wh ich is based on a 100 cell differential. [Automated mess age] The system [employer] generated this result transmitted ref erence range: <=0.0. T he reference range was not used to int erpret this result as normal/abnormal . Lab Interpretation Abnormal (test code = 05231-5) MD GarciaMM, DIGITAL, MAMMO, SCREENING, WITH ALYX, BILATERAL INCLUDING CAD 2019-05-21 10:31:00Diagnostic workup per radiologist?->Yes Reason for Exam:->z12.31N#: [id number] - MM, DIGITAL, MAMMO, SCREENING, WITH ALYX, BILATERAL INCLUDING CADBILATERALDIGITAL SCREENING MAMMOGRAM 3D/2D WITH CAD: 05/21/2019Comparison is [...] node in the right breast. No significant ma sses, calcifications, or other findings are seen in either breast. IMPRESSION: BENIGNThere is no mammographic evidence of malignancy. A 1 year screening mammogram is recommended. Stanislav Leija M.D. pth/penrad:05/21/2019 10:31:45 copy to: SIERRA BRICENO MD Normal Exam Mammogram BI-RADS:2 Benign POCT- GLUCOSE [id number] 12:07:00 Test Item Value Reference Range Interpretation Comments POC-GLUCOSE METER 119 mg/dL 70-110 H TESTED AT [facility] 6720 (BEAKER) (test code = [facility] 1538) [address] POCT-GLUCOSE [id number] 08:38:00 Test Item Value Reference Range Interpretation Comments POC-GLUCOSE METER 121 mg/dL 70-110 H TESTED AT [facility] 6720 (BEAKER) (test code = [facility] 1538) [address] [id number] 06:54:00 Test Item Value Reference Range Interpretation Comments PHOSPHORUS (BEAKER) (test code = 2.8 mg/dL 2.3-4.7 604) [id number] 06:54:00 Test Item Value Reference Range Interpretation Comments MAGNESIUM (BEAKER) (test code = 1.9 mg/dL 1.6-2.6 627) BASIC METABOLIC [id number] 06:54:00 Test Item Value Reference Range Interpretation [...] PATIEN TS. CBC W/PLT COUNT & AUTO [id number] 06:09:00 Test Item Value Reference Range Interpretation [...] PERCENT (BEAKER) (test code = 2801) POCT-GLUCOSE [id number] 21:17:00 Test Item Value Reference Range Interpretation Comments POC-GLUCOSE METER 182 mg/dL 70-110 H TESTED AT [place] [address] ([facility]) (test code = [facility] 1538) [id number] POCT-GLUCOSE [id number] 13:42:00 Test Item Value Reference Range Interpretation Comments POC-GLUCOSE METER 163 mg/dL 70-110 H TESTED AT [place] [address] ([facility]) (test code = [facility] 1538) [id number] POCT-GLUCOSE [id number] 07:19:00 Test Item Value Reference Range Interpretation Comments POC-GLUCOSE METER 126 mg/dL 70-110 H TESTED AT [place] [address] ([facility]) (test code = [facility] 1538) [id number] TISSUE [id number] 13:15:00Surgical Pathology Report Case: [id number] Authorizing Provider: Oh Hernandez Collected: 11/27/201819 Ordering Location: [facility] Endoscopy Received: 11/27/2018 1324 Services Pathologist: [...] AND CHRONIC INFLAMMATION SigningPathologist Direct Phone Line: [phone] signed by Daisha Cheatham MD on 12/02/2018 at1:15 PMB. Sections show squamocolumnar mucosa with marked reactive changes and prominent chronic inflammation in the gastric type mucosa. No definitive intestinal metaplasia is seen histologically. Multiple deeper levels were examined. Additionally, a special stain for PAS/Alcian Blue is also negativefor intestinal metaplasia. Clinical/endoscopic correlation is recommended to determine the adequacy of the sampling. 44765 x 2, 67031, 98705Uedsto obesity, Templeton's esophagus with dysplasiaA. Biopsy, gastric, [...] evaluated Immunohistochemistry technical testing was performed at [facility], Pathology Laboratory where it was developed and [...]
[2020-08-27] MEDS ORDERED: ONDANSETRON 4 MG/2 ML VIAL ONE (08:00)
[2020-08-27] MEDS ORDERED: MORPHINE 4 MG/ML SYR ONE (08:00)
[2020-08-27] MEDS ORDERED: NA CHLORIDE 0.9% 1,000 ML ONE (08:00)
[2020-08-27] MEDS ORDERED: FENTANYL CITR 100 MCG/2 ML ONE (08:15)
[2020-08-27 08:20] LABS: Basophils % 0.9 % (0-1.3); Hematocrit 33.3 % (36.0-45.0); Lymphocytes % 43.5 % (15.3-44.8); MPV 7.9 fL (7.6-11.3); RBC Red Blood Cell Count 4.32 M/uL (3.86-4.86)
[2020-08-27 08:28] LABS: ALT/SGPT 30 U/L (12-78); AST/SGOT 18 U/L (15-37); Albumin 3.6 g/dL (3.4-5.0); Alkaline Phosphatase 100 U/L (45-117); BUN Blood Urea Nitrogen 21 mg/dL (7-18); Bicarbonate 27 mmol/L (21-32); Bilirubin Direct < 0.1 mg/dL (0-0.2); Bilirubin Total 0.2 mg/dL (0.2-1.0); Glucose Level 86 mg/dL (74-106); Lipase 291 U/L (73-393); Potassium 3.8 mmol/L (3.5-5.1); Protein, Total 7.2 g/dL (6.4-8.2); Sodium Level 139 mmol/L (136-145)
--- NOTE | 2020-08-27 08:28 | RAD REPORT ---
EXAM DESCRIPTION: CTAbdomen Pelvis W Contrast - 08/27/2020 8:17 am CLINICAL HISTORY: Abdominal pain. ABD PAIN COMPARISON: Abdomen Pelvis W Contrast dated 02/01/2020; CT ABD PELVIS W CONTRAST dated 10/20/2014 TECHNIQUE: Biphasic CT imaging of the abdomen and pelvis was performed with 100 ml non-ionic IV cont rast. All CT scans are performed using dose optimization technique as appropriate and may include automated exposure control or mA/KV adjustment according to patient size. FINDINGS: The lung bases are clear.Cholecystectomy clips. Postsurgical changes are present about the stomach. The liver, spleen, pancreas, adrenal glands and kidneys are within normal limits. No bowel obstruction, free air, free fluid or abscess. Moderate stool is seen throughout the colon. T he appendix is normal. No evidence of significant lymphadenopathy. No suspicious bony findings. IMPRESSION: No acute intra-abdominal or pelvic finding.
--- NOTE | 2020-08-27 09:22 | RAD REPORT ---
EXAM DESCRIPTION: US - Abdomen Exam Limited - 08/27/2020 9:04 am CLINICAL HISTORY: ruq;Abd pain COMPARISON: Renal Ultrasound-Complete dated 05/12/2017 FINDINGS: The gallbladder is surgically absent. The common bile duct is normal measuring 5 mm. The liver demonstrates no findings of intrahepatic biliary dilatation. IMPRESSION: Negative examination status post cholecystectomy.
--- NOTE | 2020-08-27 09:52 | ER ---
Nurse's Notes [facility] Name: Rose Glasgow Age: 50 yrs Sex: Female : 1970 Arrival Date: 08/27/2020 Time: 07:21 Bed 6 Private MD: Jed Gray C Diagnosis: Upper abdominal pain, unspecified Presentation: 08/27 07:24 Chief complaint: Patient states: RUQ pain, pt states "last time I had blood work done aa5 by and my liver enzymes were elevated". Pt denies nausea/vomiting. 07:24 Coronavirus screen: At this time, the client does not indicate any symptoms associated aa5 with coronavirus-19. Ebola Screen: Patient negative for fever greater than or equal to 101.5 degrees Fahrenheit, and additional compatible Ebola Virus Disease symptoms. Initial Sepsis Screen: Does the patient meet any 2 criteria? No. Patient's initial sepsis screen is negative. Does the patient have a suspected source of infection? No. Patient's initial sepsis screen is negative. Risk Assessment: Do you want to hurt yourself or someone else? Patient reports no desire to harm self or others. 07:24 Method Of Arrival: Ambulatory aa5 07:24 Acuity: JINNY 3 aa5 Historical: - Allergies: 07:47 Sulfa (Sulfonamide Antibiotics); recommended not to take sulfa by neurologist; aa5 - PMHx: 07:47 GERD; gestational diabetes; Hypothyroidism; Intracrainal hypertension; kidney cancer; aa5 Migraines; pseudotumor cerebri; renal cell carcinoma; - PSHx: 07:47 Cholecystectomy; Knee surgery; Lap Band; Gastric Bypass; aa5 - Immunization history:: Adult Immunizations up to date. - Social history:: Smoking status: Patient denies any tobacco usage or history of. Patient/guardian denies using alcohol, street drugs, The patient lives with family. - Family history:: not pertinent. Screenin:07 Abuse screen: Denies threats or abuse. Denies injuries from another. Nutritional jl7 screening: No deficits noted. Tuberculosis screening: No symptoms or risk factors identified. Fall Risk IV access (20 points). Total Michael Fall Scale indicates No Risk (0-24 pts). Assessment: 08:07 General: Appears in no apparent distress. uncomfortable, ill, well groomed, well jl7 developed, well nourished, Behavior is calm, cooperative, appropriate for age. Pain: Complains of pain in anterior aspect of right lateral abdomen and right upper quadrant Pain does not radiate. Pain currently is 5 out of 10 on a pain scale. Is continuous. Neuro: Level of Consciousness is awake, alert, obeys commands, Oriented to person, place, time, situation. Cardiovascular: Patient's skin is warm and dry. Respiratory: Airway is patent Respiratory effort is even, unlabored, Respiratory pattern is regular, symmetrical. GI: Abdomen is non-distended, Reports nausea. Derm: Skin is pink, warm \\T\\ dry. 09:00 Reassessment: Patient appears in no apparent distress at this time. No changes from jl7 previously documented assessment. Patient and/or family updated on plan of care and expected duration. Pain level reassessed. Patient is alert, oriented x 3, equal unlabored respirations, skin warm/dry/pink. Vital Signs: 07:24 BP 122 / 79; Pulse 74; Resp 16 S; Temp 97.9(O); Pulse Ox 100% on R/A; Weight 93.44 kg aa5 (R); Height 5 ft. 6 in. (167.64 cm) (R); 09:00 BP 103 / 63; Pulse 64; Resp 15; Pulse Ox 100% ; jl7 07:24 Body Mass Index 33.25 (93.44 kg, 167.64 cm) aa5 ED Course: 07:21 Patient arrived in ED. as 07:21 Jed Gray MD is Private Physician. as 07:24 Arm band placed on. aa5 07:27 Elvira Gallegos MD is Attending Physician. vt2 07:33 Triage completed. aa5 07:40 Luis Kauffman RN is Primary Nurse. jl7 07:54 Patient has correct armband on for positive identification. Bed in low position. Call 5 light in reach. Warm blanket given. Pulse ox on. NIBP on. 08:07 Initial lab(s) drawn, by nv, sent to lab. Inserted saline lock: 20 gauge in left jl7 antecubital area, using aseptic technique. Blood collected. 08:17 CT Abd/Pelvis - IV Contrast Only In Process Unspecified. EDMS 09:03 US Abdomen Limited In Process Unspecified. EDMS 09:56 No provider procedures requiring assistance completed. IV discontinued, intact, jl7 bleeding controlled, No redness/swelling at site. Pressure dressing applied. Administered Medications: 08:00 Drug: NS 0.9% 1000 ml Route: IV; Rate: 1 bolus; Site: left antecubital; jl7 09:00 Follow up: Response: No adverse reaction; IV Status: Completed infusion; IV Intake: jl7 1000ml 08:02 Drug: Zofran (Ondansetron) 4 mg Route: IVP; Site: left antecubital; jl7 09:00 Follow up: Response: No adverse reaction jl7 08:05 Drug: fentaNYL (PF) 25 mcg Route: IVP; Site: left antecubital; jl7 09:00 Follow up: Response: No adverse reaction jl7 08:09 Not Given (Patient Refused): morphine 4 mg IVP once; RASS on ADMIN: Combtv4, Very jl7 Agttd3, Agttd2, Rstlss1, AlertClm0, Drwsy-1, Lt Sdtn-2, Mod Sdtn-3, Dp Sdtn-4, UnArsble-5 Intake: 09:00 IV: 1000ml; Total: 1000ml. jl7 Outcome: 09:52 Discharge ordered by . ma2 09:56 Discharged to home ambulatory. jl7 09:56 Condition: stable 09:56 Discharge instructions given to patient, Instructed on discharge instructions, follow up and referral plans. medication usage, Demonstrated understanding of instructions, follow-up care, medications, Prescriptions given X 1. 09:57 Patient left the ED. jl7 Signatures: Dispatcher [employer] Alicja Curry Audri, RN RN tj5 Anabel Garcia Jahala RN RN jl7 Elvira Gallegos MD MD ma2
--- NOTE | 2020-08-27 09:52 | EDPHYS ---
Physician Documentation [facility] Name: Rose Glasgow Age: 50 yrs Sex: Female : 1970 Arrival Date: 08/27/2020 Time: 07:21 Bed 6 Private MD: Jed Gray C ED Physician Elvira Gallegos HPI: 08/27 09:29 This 50 yrs old Female presents to ER via Ambulatory with complaints of ma2 Abdominal Pain. 09:29 Onset: The symptoms/episode began/occurred gradually, 1 day(s) ago. Associated signs ma2 and symptoms: Pertinent negatives: blood in stools, constipation, dysuria, fever. Severity of pain: At its worst the pain was mild moderate in the emergency department the pain is unchanged. Historical: - Allergies: 07:47 Sulfa (Sulfonamide Antibiotics); recommended not to take sulfa by neurologist; aa5 - PMHx: 07:47 GERD; gestational diabetes; Hypothyroidism; Intracrainal hypertension; kidney cancer; aa5 Migraines; pseudotumor cerebri; renal cell carcinoma; - PSHx: 07:47 Cholecystectomy; Knee surgery; Lap Band; Gastric Bypass; aa5 - Immunization history:: Adult Immunizations up to date. - Social history:: Smoking status: Patient denies any tobacco usage or history of. Patient/guardian denies using alcohol, street drugs, The patient lives with family. - Family history:: not pertinent. ROS: 09:29 Constitutional: Negative for fever, chills, and weight loss. ma2 09:29 All other systems are negative. Exam: 09:29 Constitutional: This is a well developed, well nourished patient who is awake, alert, ma2 and in no acute distress. Chest/axilla: Normal chest wall appearance and motion. Nontender with no deformity. No lesions are appreciated. Cardiovascular: Regular rate and rhythm with a normal S1 and S2. No gallops, murmurs, or rubs. Normal PMI, no JVD. No pulse deficits. Respiratory: Lungs have equal breath sounds bilaterally, clear to auscultation and percussion. No rales, rhonchi or wheezes noted. No increased work of breathing, no retractions or nasal flaring. Abdomen/GI: Soft, non-tender, with normal bowel sounds. No distension or tympany. No guarding or rebound. No evidence of tenderness throughout. Back: No spinal tenderness. No costovertebral tenderness. Full range of motion. MS/ Extremity: Pulses equal, no cyanosis. Neurovascular intact. Full, normal range of motion. Neuro: Awake and alert, GCS 15, oriented to person, place, time, and situation. Cranial nerves II-XII grossly intact. Motor strength 5/5 in all extremities. Sensory grossly intact. Cerebellar exam normal. Normal gait. Vital Signs: 07:24 BP 122 / 79; Pulse 74; Resp 16 S; Temp 97.9(O); Pulse Ox 100% on R/A; Weight 93.44 kg aa5 (R); Height 5 ft. 6 in. (167.64 cm) (R); 09:00 BP 103 / 63; Pulse 64; Resp 15; Pulse Ox 100% ; jl7 07:24 Body Mass Index 33.25 (93.44 kg, 167.64 cm) aa5 MDM: 07:27 Patient medically screened. ma2 09:29 Differential diagnosis: cholecystitis, Cholelithiasis, gastritis, Irritable bowel ma2 syndrome. Data reviewed: vital signs, nurses notes. Counseling: I had a detailed discussion with the patient and/or guardian regarding: the historical points, exam findings, and any diagnostic results supporting the discharge/admit diagnosis, the presence of at least one elevated blood pressure reading (>120/80) during this emergency department visit, the need for outpatient follow up. Response to treatment: the patient's symptoms have markedly improved after treatment. 08/27 07:24 Order name: Basic Metabolic Panel [facility] 08/27 07:24 Order name: CBC with Diff sc2 08/27 07:24 Order name: Hepatic Function sc2 08/27 07:24 Order name: Lipase sc2 08/27 07:24 Order name: Basic Metabolic Panel; Complete Time: 08:34 EDMS 08/27 07:25 Order name: Liver (Hepatic) Function; Complete Time: 08:34 EDMS 08/27 07:25 Order name: Lipase; Complete Time: 08:34 EDMS 08/27 07:25 Order name: CBC with Automated Diff; Complete Time: 08:34 EDMS 08/27 07:38 Order name: US Abdomen Limited; Complete Time: 09:28 [facility] 08/27 07:38 Order name: CT Abd/Pelvis - IV Contrast Only; Complete Time: 08:34 sc2 08/27 07:24 Order name: IV Saline Lock; Complete Time: 08:11 sc2 08/27 07:24 Order name: Labs collected and sent; Complete Time: 08:11 sc Administered Medications: 08:00 Drug: NS 0.9% 1000 ml Route: IV; Rate: 1 bolus; Site: left antecubital; 7 09:00 Follow up: Response: No adverse reaction; IV Status: Completed infusion; IV Intake: jl7 1000ml 08:02 Drug: Zofran (Ondansetron) 4 mg Route: IVP; Site: left antecubital; 7 09:00 Follow up: Response: No adverse reaction 7 08:05 Drug: fentaNYL (PF) 25 mcg Route: IVP; Site: left antecubital; 7 09:00 Follow up: Response: No adverse reaction jl7 08:09 Not Given (Patient Refused): morphine 4 mg IVP once; RASS on ADMIN: Combtv4, Very jl7 Agttd3, Agttd2, Rstlss1, AlertClm0, Drwsy-1, Lt Sdtn-2, Mod Sdtn-3, Dp Sdtn-4, UnArsble-5 Disposition: 08/27/20 09:52 Discharged to Home. Impression: Upper abdominal pain, unspecified. - Condition is Stable. - Discharge Instructions: Abdominal Pain, Adult, Colic, [id number]. - Prescriptions for Zofran 4 mg Oral Tablet - take 1 tablet by ORAL route every 12 hours As needed; 20 tablet. - Medication Reconciliation Form, Thank You Letter, Antibiotic Education, Prescription Opioid Use form. - Follow up: Private Physician; When: 24 Hours; Reason: If symptoms return. Signatures: Dispatcher [employer] EDChioma Langford RN RN Luis Hernandez RN RN jl7 Elvira Gallegos MD MD ma2 Corrections: (The following items were deleted from the chart) 09:57 09:52 08/27/2020 09:52 Discharged to Home. Impression: Upper abdominal pain, jl7 unspecified. Condition is Stable. Discharge Instructions: Abdominal Pain, Adult, Colic, [id number]. Prescriptions for Zofran 4 mg Oral Tablet - take 1 tablet by ORAL route every 12 hours As needed; 20 tablet. and Forms are Medication Reconciliation Form, Thank You Letter, Antibiotic Education, Prescription Opioid Use. Follow up: Private Physician; When: 24 Hours; Reason: If symptoms return. ma2
[2020-08-27 10:03] VITALS: TEMP 97.9; O2SAT 100
[2020-08-27 10:04] VITALS: BP 103/63
== END 2020-08-27 09:57 | disposition home or self-care (01) ==
LOC: ER 07:19
DX: R10.10 Upper abdominal pain, unspecified (principal); Z85.528 Personal history of other malignant neoplasm of kidney; Z88.2 Allergy status to sulfonamides
CPT/HCPCS: 85025; 80048; 36415; 82565; 80076; 83690; 74177; 76705; Q9967; J3010; J7030; J2405; 96361; 96374; 96375; 99284